=== PATIENT | female | born 1975 | race Caucasian/White ===

== ENCOUNTER 2023-04-01 11:38 | Emergency (ER) | payer SELFPAY ==
[2023-04-01 12:13] LABS: Basophils % (A) 0 %; Eosinophils # (A) 0.1 k/uL (0-0.7); Eosinophils % (A) 2 %; HCT 40.9 % (34.0-46.0); Lymphocytes # (A) 1.1 k/uL (1.0-4.8); Lymphocytes % (A) 19 %; MCH 29.6 pg (25.0-35.0); MCHC 34.3 g/dL (31.0-37.0); MCV 86.3 fL (80.0-100.0); Mean Platelet Volume 7.2; Monocytes # (A) 0.5 k/uL (0-1.0); Monocytes % (A) 9 %; Neutrophils # (A) 3.8 k/uL (1.3-7.7); Neutrophils % (A) 67 %; Platelet Count 184 k/uL (150-450); RBC 4.74 m/uL (3.80-5.40); RDW 12.5 % (11.5-15.5); WBC 5.7 k/uL (3.8-10.6)
[2023-04-01] MEDS ORDERED: SODIUM CHLORIDE 0.9% 1,000 ML IV STA (12:15)
[2023-04-01 12:18] LABS: Appearance,Urine Cloudy (Clear); Bacteria,Urine Rare /hpf; Bilirubin,Urine Negative (Negative); Blood,Urine Moderate (Negative); Color,Urine Yellow; Glucose,Urine (UA) Negative (Negative); Ketones,Urine Negative (Negative); Leukocyte Esterase,Urine Large (Negative); Mucus,Urine Occasional /hpf; Nitrite,Urine Negative (Negative); PH, Urine 6.5 (5.0-8.0); Protein,Urine 2+ (Negative); RBC,Urine 44 /hpf (0-5); Specific Gravity,Urine 1.016 (1.001-1.035); Squamous Epithelial Cell,Urine 6 /hpf (0-4); Urobilinogen,Urine <2.0 mg/dL (<2.0); WBC,Urine >182 /hpf (0-5)
[2023-04-01] MEDS ORDERED: KETOROLAC 15 MG/ML 1 ML VIAL IVP STA (12:21)
[2023-04-01 12:22] LABS: Albumin 4.5 g/dL (3.5-5.0); Calcium 9.5 mg/dL (8.4-10.2); Potassium 4.3 mmol/L (3.5-5.1); Total Bilirubin 0.6 mg/dL (0.2-1.3); Total Protein 7.7 g/dL (6.3-8.2)
--- NOTE | 2023-04-01 12:27 | ED ---
General Adult HPI - General Chief complaint: Abdominal Pain Stated complaint: Left side pain Time Seen by Provider: 04/01/23 11:52 Source: patient Mode of arrival: ambulatory Limitations: no limitations - History of Present Illness Initial comments: Dictation was produced using [employer] dictation software. please excuse any grammatical, word or spelling errors. Chief Complaint: 47-year-old female presents emergency part for left-sided flank pain History of Present Illness: Is 47-year-old female presents emergency Prilosec flank pain. She is history of kidney stones. She's had multiple kidney stones however has not required any surgical intervention. Family yesterday she's been having left flank pain. She localizes the pain to her left lower back. Nonradiating. Not associated with urinary symptoms. Patient has passed mu ltiple stones before. She states that she had a number of small stones. She is last image 2 years ago. Patient states the pain is slightly different. Symptoms are associated with nausea. No vomiting. Denies any fever or constitutional symptoms. The ROS documented in this emergency department record has been reviewed and confirmed by me. Those systems with pertinent positive or negative responses have been documented in the HPI. All other systems are other negative and/or noncontributory. - Related Data Home Medications Medication Instructions Recorded Confirmed Acetaminophen Tab [Tylenol Tab] 1,000 mg PO Q6H PRN 04/01/23 04/01/23 Amitriptyline HCl [Elavil] 25 mg PO HS 04/01/23 04/01/23 Cholecalciferol [Vitamin D3 (125 125 mcg PO DAILY 04/01/23 04/01/23 Mcg = 5000 Iu)] Cyclobenzaprine [Flexeril] 10 mg PO TID PRN 04/01/23 04/01/23 Docusate [Colace] 100 mg PO BID 04/01/23 04/01/23 Gabapentin 300 mg PO BID 04/01/23 04/01/23 Levothyroxine Sodium [Synthroid] 75 mcg PO AC-BRKFST 04/01/23 04/01/23 Meloxicam [Mobic] 7.5 mg PO DAILY 04/01/23 04/01/23 Meloxicam [Mobic] 7.5 mg PO HS PRN 04/01/23 04/01/23 polyethylene glycoL 3350 [Miralax] 17 gm PO BID 04/01/23 04/01/23 Previous Rx's Medication Instructions Recorded Cefpodoxime Proxetil [Vantin] 200 mg PO Q12HR 10 Days #20 tab 04/01/23 Allergies Allergy/AdvReac Type Severity Reaction Status Date / Time sulfamethoxazole Allergy Anaphylaxis Verified 04/01/23 13:01 [From Bactrim] trimethoprim [From Bactrim] Allergy Anaphylaxis Verified 04/01/23 13:01 Review of Systems ROS Statement: Those systems with pertinent positive or pertinent negative responses have been documented in the HPI. ROS Other: All systems not noted in ROS Statement are negative. Past Medical History Past Medical History: Fibromyalgia, Thyroid Disorder Additional Past Medical History / Comment(s): kidney stones History of Any Multi-Drug Resistant Organisms: None Reported Past Surgical History: Section, Cholecystectomy, Hysterectomy Additional Past Surgical History / Comment(s): right ureter replacement Past Psychological History: No Psychological Hx Reported Smoking Status: Never smoker Past Alcohol Use History: None Reported Past Drug Use History: None Reported General Exam - General Exam Comments Initial Comments: PHYSICAL EXAM: General Impression: Alert and oriented x3, mild distress secondary to pain HEENT: Normocephalic atraumatic, extra-ocular movements intact, pupils equal and reactive to light bilaterally, mucous membranes moist. Cardiovascular: Heart regular rate and rhythm Chest: Able to complete full sentences, no retractions, no tachypnea Abdomen: abdomen soft, non-tender, non-distended, no organomegaly Musculoskeletal: Pulses present and equal in all extremities, no peripheral edema, positive left CVA thump Motor: no focal deficits noted Neurological: CN II-XII grossly intact, no focal motor or sensory deficits noted Skin: Intact with no visualized rashes Psych: Normal affect and mood Limitations: no limitations Course Vital Signs 04/01/23 04/01/23 11:42 13:17 Temperature 98 F 98.6 F Pulse Rate 97 78 Respiratory 16 14 Rate Blood Pressure 150/92 143/90 O2 Sat by Pulse 98 97 Oximetry - Reevaluation(s) Reevaluation #1: 04/01/23 13:59 Patient reevaluated bedside 2:00 PM found with stable medical condition. Symptoms improved after Toradol administration. Imaging studies and lab results were discussed with patient. She is told of bilateral hydronephrosis. She states that this is likely secondary to previous history of kidney stone issues that caused chronic damage to her kidneys. She does not have any right-sided pain. States that the pain is on the left side. Given a dose of ceftriaxone 04/01/23 14:00 Medical Decision Making - Medical Decision Making Was pt. sent in by a medical professional or institution ([facility], [employer], urgent care, hospital, or jail...) When possible be specific @ -No Did you speak to anyone other than the patient for history (EMS, parent, family, police, friend...)? What history was obtained from this source @ -No Did you review nursing and triage notes (agree or disagree)? Why? @ -I reviewed and agree with nursing and triage notes Were old charts reviewed (outside hosp., previous admission, EMS record, old EKG, old radiological studies, urgent care reports/EKG's, jail records)? Report findings @ -no Old charts available for review Differential Diagnosis (chest pain, altered mental status, abdominal pain women, abdominal pain men, vaginal bleeding, musculoskeletal, weakness, fever, dyspnea, syncope, headache, dizziness, GI bleed, back pain, seizure, CVA, palpatations, mental health)? @ -Differential Abdominal Pain Women: Appendicitis, Cholecystitis, diverticulosis, ischemic bowel, pancreatitis, hepatitis, UTI, gastroenteritis, AAA, incarcerated hernia, bowel obstruction, constipation, inflammatory bowel, hepatitis, peptic ulcer disease, splenic infarction, perforated viscus, vulvitis, ovarian torsion, PID, kidney stone, placenta abruption, this is not meant to be an all-inclusive list EKG interpreted by me (3pts min.). @ -None done X-rays interpreted by me (1pt min.). @ -None done CT interpreted by me (1pt min.). @ -No acute processes. There does appear to be some mild hydronephrosis and hydroureter bilaterally U/S interpreted by me (1pt. min.). @ -None done What testing was considered but not performed or refused? (CT, X-rays, U/S, labs)? Why? @ -None What meds were considered but not given or refused? Why? @ -None Did you discuss the management of the patient with other professionals (professionals i.e. [facility], [employer], lab, RT, psych nurse, social insurance specialist, fiberglass tube molder, teacher, facility security officer, case fitter)? Give summary @ -No Was smoking cessation discussed for >3mins.? @ -No Was critical care preformed (if so, how long)? @ -No Were there social determinants of health that impacted care today? How? (Homelessness, low income, unemployed, alcoholism, drug addiction, transportation, low edu. Level, literacy, decrease access to med. care, half-way, rehab)? @ -Patient primary state of residence [place]. She is here for the next 2 months visiting daughter. All of her care regarding previous kidney stones was performed in [place] Was there de-escalation of care discussed even if they declined (Discuss DNR or withdrawal of care, Hospice)? DNR status @ -No What co-morbidities impacted this encounter? (DM, HTN, Smoking, COPD, CAD, Cancer, CVA, ARF, Chemo, Hep., AIDS, mental health diagnosis, sleep apnea, morbid obesity)? @ -None Was patient admitted / discharged? Hospital course, mention meds given and rout e, prescriptions, significant lab abnormalities, going to OR and other pertinent info. @ -47-year-old female presents emergency Department with left-sided flank pain. She has history of kidney stones. States that her symptoms slightly different. She localizes pain to only her left flank. Vital signs upon arrival are within acceptable limits for denies any constitutional symptoms. Laboratory evaluation obtained. CBC, metabolic panel is unremarkable. Urinalysis suggests urinary tract infection. Patient does not have any history of multidrug resistant urinary tract infections. She is given a dose of ceftriaxone. Imaging and laboratory results were discussed with patient. She is agreeable for discharge. Return precautions discussed. Clinical presentation consistent with pyelonephritis Undiagnosed new problem with uncertain prognosis? @ -No Drug Therapy requiring intensive monitoring for toxicity (Heparin, Nitro, Insulin, Cardizem)? @ -No Were any procedures done? @ -No Diagnosis/symptom? Acute, or Chronic, or Acute on Chronic? Uncomplicated (without systemic symptoms) or Complicated (systemic symptoms)? @ -1. Acute pyelonephritis Side effects of treatment? @ -No Exacerbation, Progression, or Severe Exacerbation? @ -No Poses a threat to life or bodily function? How? (Chest pain, [place], [place], pneumonia, PE, COPD, DKA, ARF, appy, cholecystitis, CVA, Diverticulitis, Homicidal, Suicidal, threat to staff... and all critical care pts) @ -yes - Lab Data Result diagrams: 04/01/23 11:57 04/01/23 11:57 Lab Results 04/01/23 04/01/23 04/01/23 Range/Units 11:57 11:57 11:57 WBC 5.7 (3.8-10.6) k/uL RBC 4.74 (3.80-5.40) m/uL Hgb 14.0 (11.4-16.0) gm/dL Hct 40.9 (34.0-46.0) % MCV 86.3 (80.0-100.0) fL MCH 29.6 (25.0-35.0) pg MCHC 34.3 (31.0-37.0) g/dL RDW 12.5 (11.5-15.5) % Plt Count 184 (150-450) k/uL MPV 7.2 Neutrophils % 67 % Lymphocytes % 19 % Monocytes % 9 % Eosinophils % 2 % Basophils % 0 % Neutrophils # 3.8 (1.3-7.7) k/uL Lymphocytes # 1.1 (1.0-4.8) k/uL Monocytes # 0.5 (0-1.0) k/uL Eosinophils # 0.1 (0-0.7) k/uL Basophils # 0.0 (0-0.2) k/uL Sodium 140 (137-145) mmol/L Potassium 4.3 (3.5-5.1) mmol/L Chloride 100 (98-107) mmol/L Carbon Dioxide 28 (22-30) mmol/L Anion Gap 12 mmol/L BUN 15 (7-17) mg/dL Creatinine 1.34 H (0.52-1.04) mg/dL Est GFR (CKD-EPI)AfAm 55 (>60 ml/min/1.73 sqM) Est GFR (CKD-EPI)NonAf 47 (>60 ml/min/1.73 sqM) Glucose 127 H (74-99) mg/dL Calcium 9.5 (8.4-10.2) mg/dL Total Bilirubin 0.6 (0.2-1.3) mg/dL AST 32 (14-36) U/L ALT 41 H (4-34) U/L Alkaline Phosphatase 65 (38-126) U/L Total Protein 7.7 (6.3-8.2) g/dL Albumin 4.5 (3.5-5.0) g/dL Lipase 58 (23-300) U/L Urine Color Yellow Urine Appearance Cloudy H (Clear) Urine pH 6.5 (5.0-8.0) Ur Specific [place] 1.016 (1.001-1.035) Urine Protein 2+ H (Negative) Urine Glucose (UA) Negative (Negative) Urine Ketones Negative (Negative) Urine Blood Moderate H (Negative) Urine Nitrite Negative (Negative) Urine Bilirubin Negative (Negative) Urine Urobilinogen <2.0 (<2.0) mg/dL Ur Leukocyte Esterase Large H (Negative) Urine RBC 44 H (0-5) /hpf Urine WBC >182 H (0-5) /hpf Urine WBC Clumps Few H (None) /hpf Ur Squamous Epith Cells 6 H (0-4) /hpf Urine Bacteria Rare H (None) /hpf Urine Mucus Occasional H (None) /hpf Disposition Clinical Impression: Pyelonephritis Disposition: HOME SELF-CARE Condition: Good Prescriptions: Cefpodoxime Proxetil [Vantin] 200 mg PO Q12HR 10 Days #20 tab Is patient prescribed a controlled substance at d/c from ED?: No Referrals: Jose Carlos Etienne MD [STAFF PHYSICIAN] - 1-2 days Time of Disposition: 14:03
[2023-04-01] MEDS ORDERED: cefTRIAXone IN SWFI 1,000 MG/10 ML SYRINGE IVP STA (12:41)
[2023-04-01 13:22] VITALS: RESP 14; TEMP 98.6
--- NOTE | 2023-04-01 13:42 | CT ---
EXAMINATION TYPE: CT abdomen pelvis wo con DATE OF EXAM: 04/01/2023 COMPARISON: None INDICATION: Left flank pain, history of renal stones, history of interstitial cystitis DLP: 1145.4 mGycm, Automated exposure control for dose reduction was used. CONTRAST: 0 mL of Isovue 300. Study performed without Oral Contrast TECHNIQUE: Axial images were obtained from above the diaphragm to the pubic rami in the axial plane a t 5 mm thick sections. Reconstructed images are reviewed on the computer in the coronal plane. FINDINGS: Limited CT sections are obtained the lung bases. The lung bases are clear. CT ABDOMEN: Liver: There is moderate fatty infiltration liver. Spleen: Normal Pancreas: Normal Adrenal glands: The adrenal glands are normal. Gallbladder: Surgically absent. Kidneys: No masses are evident. Mild bilateral hydronephrosis present. Mild hydroureter is evident. N o obstructing renal or ureteral stones are evident. There appear to be phleboliths within the pelvis. There are some nonobstructing renal stones at the inferior pole right kidney measuring 0.3 cm. Aorta: Vascular calcification is within the aorta. Inferior vena cava: Normal. CT PELVIS: Loops of bowel within the abdomen and pelvis are normal. This study is performed without oral con trast limiting bowel evaluation. Appendix: Normal as visualized. Urinary bladder: Normal. Genitourinary structures: Uterus and ovaries are not identified. Osseous structures: No suspicious lytic or sclerotic lesions. IMPRESSIONS: 1. Nonobstructing renal stones inferior pole right kidney. 2. There is some mild bilateral hydronephrosis and mild hydroureter extending to the urinary bladder. Obstructing ureteral stones however not identified.
[2023-04-01] MEDS ORDERED: ACET/COD 300 MG/30 MG STARTER PACK 6 TAB BTL PO STA (14:03)
[2023-04-01 14:05] VITALS: BP 133/85; PULSE 74
== END 2023-04-01 14:17 | disposition home or self-care (01) ==
LOC: EC 11:38
DX: N13.6 Pyonephrosis (principal); N30.10 Interstitial cystitis (chronic) without hematuria; N12 Tubulo-interstitial nephritis, not specified as acute or chronic; E07.9 Disorder of thyroid, unspecified; Z79.890 Hormone replacement therapy; Z88.1 Allergy status to other antibiotic agents; Z88.2 Allergy status to sulfonamides; Z90.49 Acquired absence of other specified parts of digestive tract; Z79.1 Long term (current) use of non-steroidal anti-inflammatories (NSAID)
CPT/HCPCS: 36415; 80053; 83690; 85025; 81001; 87040; 74176; 99284; 96374; 96375; 96361 ×2; J0696; J1885

== ENCOUNTER 2023-04-03 10:13 | Inpatient (IN) | payer BC ==
[2023-04-03 11:03] LABS: Albumin 4.2 g/dL (3.5-5.0); Calcium 9.1 mg/dL (8.4-10.2); Potassium 3.9 mmol/L (3.5-5.1); Total Bilirubin 0.7 mg/dL (0.2-1.3); Total Protein 7.4 g/dL (6.3-8.2)
--- NOTE | 2023-04-03 11:03 | XR ---
EXAMINATION TYPE: XR KUB DATE OF EXAM: 04/03/2023 COMPARISON: NONE HISTORY: Abdominal pain TECHNIQUE: One view abdominal series FINDINGS: The osseous structures are intact. The bowel gas pattern is nonspecific. Surgical clips right upper quadrant. There are 2 small punctate calcifications in the pelvis. Scoliotic curvature spine. IMPRESSION: 1. Nonspecific abdomen. A punctate right hemipelvic calcifications within the vascular. Lower pole r enal calculi noted by recent CT scan not as well seen today standard x-ray. Tiny calculus in the righ t hemipelvis appear to be outside the course of the right ureter based on previous CAT scan.
[2023-04-03 11:30] LABS: Basophils % (A) 0 %; Eosinophils # (A) 0.1 k/uL (0-0.7); Eosinophils % (A) 2 %; HGB 13.1 gm/dL (11.4-16.0); Lymphocytes # (A) 1.6 k/uL (1.0-4.8); Lymphocytes % (A) 23 %; MCH 28.4 pg (25.0-35.0); MCHC 33.5 g/dL (31.0-37.0); MCV 84.7 fL (80.0-100.0); Mean Platelet Volume 7.3; Monocytes # (A) 0.6 k/uL (0-1.0); Monocytes % (A) 8 %; Neutrophils # (A) 4.5 k/uL (1.3-7.7); Neutrophils % (A) 64 %; Platelet Count 187 k/uL (150-450); RBC 4.61 m/uL (3.80-5.40); RDW 12.8 % (11.5-15.5)
[2023-04-03 11:34] LABS: Appearance,Urine Turbid (Clear); Bacteria,Urine Rare /hpf; Bilirubin,Urine Negative (Negative); Blood,Urine Large (Negative); Color,Urine Yellow; Glucose,Urine (UA) Negative (Negative); Ketones,Urine Negative (Negative); Leukocyte Esterase,Urine Large (Negative); Mucus,Urine Occasional /hpf; Nitrite,Urine Negative (Negative); Protein,Urine 2+ (Negative); RBC,Urine 99 /hpf (0-5); Specific Gravity,Urine 1.021 (1.001-1.035); Squamous Epithelial Cell,Urine 20 /hpf (0-4); Urobilinogen,Urine <2.0 mg/dL (<2.0); WBC,Urine >182 /hpf (0-5)
[2023-04-03] MEDS ORDERED: MORPHINE SULFATE 4 MG/ML SYRINGE IVP STA (11:37)
[2023-04-03] MEDS ORDERED: SODIUM CHLORIDE 0.9% 1,000 ML IV STA (11:37)
[2023-04-03] MEDS ORDERED: KETOROLAC 15 MG/ML 1 ML VIAL IVP STA (11:37)
--- NOTE | 2023-04-03 11:38 | ED ---
General Adult HPI - General Chief complaint: Abdominal Pain Stated complaint: Left flank pain - extending into ABD Time Seen by Provider: 04/03/23 11:29 Source: patient, RN notes reviewed Mode of arrival: ambulatory Limitations: no limitations - History of Present Illness Initial comments: Patient is a 47-year-old female presenting to the emergency room with complaints of worsening left flank pain which is now radiating into her abdomen with occasional nausea and vomiting. She presented to the emergency room on 04/03/2023 with similar symptoms. Workup found her to have mild hydronephrosis bilaterally and a right nonobstructive renal stone along with a urinary tract infection. She was placed on antibiotic therapy and given a one-time dose of IV antibiotics the hospital. She has been taking her antibiotics of Vantin as prescribed and as stated above symptoms are not improving. She continues to have dysuria and urinary frequency but denies hematuria. She denies any chest pain, shortness of breath, upper abdominal pain, diarrhea, headache, dizziness, fevers or chills. In addition to her kidney stone history she has a past medical history significant for septicemia secondary to pyelonephritis, fibromyalgia and hypothyroidism. - Related Data Home Medications Medication Instructions Recorded Confirmed Acetaminophen Tab [Tylenol Tab] 1,000 mg PO Q6H PRN 04/01/23 04/03/23 Amitriptyline HCl [Elavil] 25 mg PO HS 04/01/23 04/03/23 Cholecalciferol [Vitamin D3 (125 125 mcg PO DAILY 04/01/23 04/03/23 Mcg = 5000 Iu)] Cyclobenzaprine [Flexeril] 10 mg PO TID PRN 04/01/23 04/03/23 Docusate [Colace] 100 mg PO BID 04/01/23 04/03/23 Gabapentin 300 mg PO BID 04/01/23 04/03/23 Levothyroxine Sodium [Synthroid] 75 mcg PO AC-BRKFST 04/01/23 04/03/23 Meloxicam [Mobic] 7.5 mg PO DAILY 04/01/23 04/03/23 Meloxicam [Mobic] 7.5 mg PO HS PRN 04/01/23 04/03/23 polyethylene glycoL 3350 [Miralax] 17 gm PO BID 04/01/23 04/03/23 Previous Rx's Medication Instructions Recorded Cefpodoxime Proxetil [Vantin] 200 mg PO Q12HR 10 Days #20 tab 04/01/23 Allergies Allergy/AdvReac Type Severity Reaction Status Date / Time sulfamethoxazole Allergy Anaphylaxis Verified 04/03/23 14:34 [From Bactrim] trimethoprim [From Bactrim] Allergy Anaphylaxis Verified 04/03/23 14:34 Review of Systems ROS Statement: Those systems with pertinent positive or pertinent negative responses have been documented in the HPI. ROS Other: All systems not noted in ROS Statement are negative. Past Medical History Past Medical History: Fibromyalgia, Thyroid Disorder Additional Past Medical History / Comment(s): kidney stones History of Any Multi-Drug Resistant Organisms: None Reported Past Surgical History: Section, Cholecystectomy, Hysterectomy Additional Past Surgical History / Comment(s): right ureter replacement Past Psychological History: No Psychological Hx Reported Smoking Status: Never smoker Past Alcohol Use History: None Reported Past Drug Use History: None Reported General Exam - General Exam Comments Initial Comments: GENERAL: No acute distress, well developed, well nourished. HEENT: Normocephalic, atraumatic. Pupils equal, round, reactive to light. Moist mucous membranes. LUNGS: No respiratory distress. Clear to auscultation, no adventitious sounds, no use of accessory muscles. HEART: Regular rate and rhythm without murmur, rub, or gallop. ABDOMEN: Normal bowel sounds. Soft, non-tender non-distended. Rounded abdomen. BACK: Normal inspection. Left CVA tenderness. EXTREMITIES: No edema. No tenderness. Moves all extremities. NEUROLOGIC: Alert & oriented x 3. CN II-XII grossly intact. PSYCHIATRIC: Normal affect and behavior. DERMATOLOGIC: Skin intact, without rashes or lesions noted. Limitations: no limitations Course Vital Signs 04/03/23 10:17 Temperature 98.2 F Pulse Rate 82 Respiratory 18 Rate Blood Pressure 163/100 O2 Sat by Pulse 97 Oximetry Medical Decision Making - Medical Decision Making Was pt. sent in by a medical professional or institution (, PA, PATTERN WEAVER, urgent care, hospital, or shelter...) When possible be specific @ -No Did you speak to anyone other than the patient for history (EMS, parent, family, police, friend...)? What history was obtained from this source @ -No Did you review nursing and triage notes (agree or disagree)? Why? @ -I reviewed and agree with nursing and triage notes Were old charts reviewed (outside hosp., previous admission, EMS record, old EKG, old radiological studies, urgent care reports/EKG's, shelter records)? Report findings @ -Yes, laboratory studies and CT of the abdomen completed on 04/01/2023 reviewed. Differential Diagnosis (chest pain, altered mental status, abdominal pain women, abdominal pain men, vaginal bleeding, weakness, fever, dyspnea, syncope, headache, dizziness, GI bleed, back pain, seizure, CVA, palpatations, mental health, musculoskeletal)? @ -Differential Back Pain: Strain, zoster, cauda equina syndrome, epidural abscess, vertebral osteomyelitis, discitis, fracture, subluxation, disc herniation, DJD, spinal stenosis, dissection, AAA, pancreatitis, peptic ulcer disease, pyelonephritis, kidney stone, this is not meant to be an all-inclusive list. EKG interpreted by me (3pts min.). @ -None done X-rays interpreted by me (1pt min.). @ -KUB: Redemonstration of renal stone identified on computed tomography scan previously. No free air or obstruction. CT interpreted by me (1pt min.). @ -None done U/S (1pt. min.). @ -Ultrasound kidneys/renal and bladder report per radiologist not interpreted by me shows mild to moderate left hydronephrosis and hepatic steatosis. What testing was considered but not performed or refused? (CT, X-rays, U/S, labs)? Why? @ -Computed tomography scan deferred due to recent CAT scan. What meds were considered but not given or refused? Why? @ -None Did you discuss the management of the patient with other professionals (professionals i.e. , PA, PATTERN WEAVER, lab, RT, psych nurse, secondary social studies teacher, financial analysis advisor, teacher, custody officer, high risk case manager)? Give summary @ -Yes, spoke with Dr. Damian regarding patient's presentation and recommendation of admission for further evaluation and treatment. He is accepting of admission and denies any further order needs at this time. Was smoking cessation discussed for >3mins.? @ -No Was critical care preformed (if so, how long)? @ -No Were there social determinants of health that impacted care today? How? (Homelessness, low income, unemployed, alcoholism, drug addiction, transportation, low edu. Level, literacy, decrease access to med. care, nursing home, rehab)? @ -No Was there de-escalation of care discussed even if they declined (Discuss DNR or withdrawal of care, Hospice)? DNR status @ -No What co-morbidities impacted this encounter? (DM, HTN, Smoking, COPD, CAD, Cancer, CVA, ARF, Chemo, Hep., AIDS, mental health diagnosis, sleep apnea, morbid obesity)? @ -Kidney stone history and recently diagnosed UTI Was patient admitted / discharged? Hospital course, mention meds given and route, prescriptions, significant lab abnormalities, going to OR and other pertinent info. @ -47-year-old . Presenting to the emergency room with worsening left flank pain despite adhering to treatment for urinary tract infection. Workup completed on 04/01/2023 reviewed. Will defer computed tomography scan and obtain ultrasound of the kidneys and bladder. KUB ordered by triaging nurse reviewed and nonspecific. Laboratory studies ordered by triaging nurse of CBC, CMP, urinalysis and urine hCG all available. CBC without abnormalities CMP shows increasing creatinine at 1.46 with normal BUN electrolytes normal glucose elev ated 118 a LT elevated 44 AST and alkaline phosphatase normal. Urinalysis demonstrates blood, large leukocyte esterase urine RBC 99 urine WBC greater than 182 significant amount of squamous epithelial cells, rare bacteria and occasional mucus. Urine hCG Qual negative. Will give IV hydration and Toradol for pain along with morphine. Ultrasound of kidneys bladder demonstrates mild to moderate hydronephrosis to left kidney, none to right. The setting of worsening pain requiring multiple doses of pain medication for control and progressing hydronephrosis with increase in creatinine from 1.34-1.48 despite oral antibiotic treatment recommend admission for IV antibiotics, IV hydration and pain control. Recommendations discussed with patient and was agreeable to admission. Spoke with Dr. Damian on for [facility] regarding patient's workup and recommendations of admission for IV pain control, hydration and antibiotics. He is accepting of admission and denies any further orders at this time. Will admit patient in stable condition to medical surgical unit under [facility] services for further evaluation and treatment for urinary tract infection with left hydronephrosis. Undiagnosed new problem with uncertain prognosis? @ -No Drug Therapy requiring intensive monitoring for toxicity (Heparin, Nitro, Insulin, Cardizem)? @ -No Were any procedures done? @ -No Diagnosis/symptom? @ -UTI Acute, or Chronic, or Acute on Chronic? @ -Acute Uncomplicated (without systemic symptoms) or Complicated (systemic symptoms)? @ -Complicated Side effects of treatment? @ -No Exacerbation, Progression, or Severe Exacerbation? @ -No Poses a threat to life or bodily function? How? (Chest pain, USA, PR, pneumonia, PE, COPD, DKA, ARF, appy, cholecystitis, CVA, Diverticulitis, Homicidal, Suicidal, threat to staff... and all critical care pts) @ -Yes, pain and hydronephrosis to left kidney worsening on antibiotics at risk for pyelonephrosis and sepsis. Diagnosis/symptom? @ -Flank pain Acute, or Chronic, or Acute on Chronic? @ -Acute Uncomplicated (without systemic symptoms) or Complicated (systemic symptoms)? @ -Uncomplicated Side effects of treatment? @ -none Exacerbation, Progression, or Severe Exacerbation] @ -no Poses a threat to life or bodily function? @ -no Diagnosis/symptom? @ -Left hydronephrosis Acute, or Chronic, or Acute on Chronic? @ -Acute Uncomplicated (without systemic symptoms) or Complicated (systemic symptoms)? @ -Complicated Side effects of treatment? @ -none Exacerbation, Progression, or Severe Exacerbation] @ -no Poses a threat to life or bodily function? @ -Yes, severe pain with worsening renal function at risk for worsening renal function. Case discussed with Dr. Feliz. - Lab Data Result diagrams: 04/03/23 10:35 04/03/23 10:35 Lab Results 04/03/23 04/03/23 04/03/23 Range/Units 10:35 10:35 10:35 WBC 7.0 (3.8-10.6) k/uL RBC 4.61 (3.80-5.40) m/uL Hgb 13.1 (11.4-16.0) gm/dL Hct 39.0 (34.0-46.0) % MCV 84.7 (80.0-100.0) fL MCH 28.4 (25.0-35.0) pg MCHC 33.5 (31.0-37.0) g/dL RDW 12.8 (11.5-15.5) % Plt Count 187 (150-450) k/uL MPV 7.3 Neutrophils % 64 % Lymphocytes % 23 % Monocytes % 8 % Eosinophils % 2 % Basophils % 0 % Neutrophils # 4.5 (1.3-7.7) k/uL Lymphocytes # 1.6 (1.0-4.8) k/uL Monocytes # 0.6 (0-1.0) k/uL Eosinophils # 0.1 (0-0.7) k/uL Basophils # 0.0 (0-0.2) k/uL Sodium 140 (137-145) mmol/L Potassium 3.9 (3.5-5.1) mmol/L Chloride 103 (98-107) mmol/L Carbon Dioxide 28 (22-30) mmol/L Anion Gap 9 mmol/L BUN 13 (7-17) mg/dL Creatinine 1.48 H (0.52-1.04) mg/dL Est GFR (CKD-EPI)AfAm 48 (>60 ml/min/1.73 sqM) Est GFR (CKD-EPI)NonAf 42 (>60 ml/min/1.73 sqM) Glucose 118 H (74-99) mg/dL Calcium 9.1 (8.4-10.2) mg/dL Total Bilirubin 0.7 (0.2-1.3) mg/dL AST 33 (14-36) U/L ALT 44 H (4-34) U/L Alkaline Phosphatase 74 (38-126) U/L Total Protein 7.4 (6.3-8.2) g/dL Albumin 4.2 (3.5-5.0) g/dL Urine Color Yellow Urine Appearance Turbid H (Clear) Urine pH 6.0 (5.0-8.0) Ur Specific [place] 1.021 (1.001-1.035) Urine Protein 2+ H (Negative) Urine Glucose (UA) Negative (Negative) Urine Ketones Negative (Negative) Urine Blood Large H (Negative) Urine Nitrite Negative (Negative) Urine Bilirubin Negative (Negative) Urine Urobilinogen <2.0 (<2.0) mg/dL Ur Leukocyte Esterase Large H (Negative) Urine RBC 99 H (0-5) /hpf Urine WBC >182 H (0-5) /hpf Ur Squamous Epith Cells 20 H (0-4) /hpf Urine Bacteria Rare H (None) /hpf Urine Mucus Occasional H (None) /hpf Urine HCG, Qual (Not Detectd) 04/03/23 Range/Units 10:35 WBC (3.8-10.6) k/uL RBC (3.80-5.40) m/uL Hgb (11.4-16.0) gm/dL Hct (34.0-46.0) % MCV (80.0-100.0) fL MCH (25.0-35.0) pg MCHC (31.0-37.0) g/dL RDW (11.5-15.5) % Plt Count (150-450) k/uL MPV Neutrophils % % Lymphocytes % % Monocytes % % Eosinophils % % Basophils % % Neutrophils # (1.3-7.7) k/uL Lymphocytes # (1.0-4.8) k/uL Monocytes # (0-1.0) k/uL Eosinophils # (0-0.7) k/uL Basophils # (0-0.2) k/uL Sodium (137-145) mmol/L Potassium (3.5-5.1) mmol/L Chloride (98-107) mmol/L Carbon Dioxide (22-30) mmol/L Anion Gap mmol/L BUN (7-17) mg/dL Creatinine (0.52-1.04) mg/dL Est GFR (CKD-EPI)AfAm (>60 ml/min/1.73 sqM) Est GFR (CKD-EPI)NonAf (>60 ml/min/1.73 sqM) Glucose (74-99) mg/dL Calcium (8.4-10.2) mg/dL Total Bilirubin (0.2-1.3) mg/dL AST (14-36) U/L ALT (4-34) U/L Alkaline Phosphatase (38-126) U/L Total Protein (6.3-8.2) g/dL Albumin (3.5-5.0) g/dL Urine Color Urine Appearance (Clear) Urine pH (5.0-8.0) Ur Specific [place] (1.001-1.035) Urine Protein (Negative) Urine Glucose (UA) (Negative) Urine Ketones (Negative) Urine Blood (Negative) Urine Nitrite (Negative) Urine Bilirubin (Negative) Urine Urobilinogen (<2.0) mg/dL Ur Leukocyte Esterase (Negative) Urine RBC (0-5) /hpf Urine WBC (0-5) /hpf Ur Squamous Epith Cells (0-4) /hpf Urine Bacteria (None) /hpf Urine Mucus (None) /hpf Urine HCG, Qual Not Detected (Not Detectd) - Radiology Data Radiology results: report reviewed, image reviewed Disposition Clinical Impression: UTI (urinary tract infection), Hydronephrosis Disposition: ADMITTED IP TO THIS HOSP Condition: Stable Time of Disposition: 14:12
--- NOTE | 2023-04-03 13:34 | US ---
EXAMINATION TYPE: US kidneys/renal and bladder DATE OF EXAM: 04/03/2023 COMPARISON: CLINICAL INDICATION: Female, 47 years old with history of UTI flank pain; Left side pain. Patient st ates having hx of right renal stones with surgical intervention. EXAM MEASUREMENTS: Right Kidney: 11.6 x 4.6 x 4.1 cm Left Kidney: 13.7 x 5.5 x 6.4 cm Right Kidney: Small extrarenal pelvis. No calyceal dilatation to suggest hydronephrosis. Left Kidney: Mild to moderate hydronephrosis. Bladder: Incompletely distention limited evaluation. Bilateral Jets not seen Incidental echogenic hepatic parenchyma suggesting fatty infiltration. IMPRESSION: 1. Ongoing mild to moderate left hydronephrosis. Appropriate workup and management as to etiology. 2. Incidental hepatic steatosis.
[2023-04-03] MEDS ORDERED: NALOXONE 0.4 MG/ML 1 ML VIAL IV PRN (14:12)
[2023-04-03] MEDS ORDERED: ONDANSETRON 4 MG/2 ML VIAL IVP PRN (14:12)
[2023-04-03] MEDS ORDERED: IBUPROFEN 400 MG TAB PO PRN (14:12)
[2023-04-03] MEDS ORDERED: MORPHINE SULFATE 4 MG/ML SYRINGE IV PRN (14:12)
[2023-04-03] MEDS ORDERED: cefTRIAXone IN SWFI 1,000 MG/10 ML SYRINGE IVP STA (14:13)
[2023-04-03] MEDS: KETOROLAC 15 MG/ML 1 ML VIAL IVP PRN (16:22)
[2023-04-03] MEDS: SODIUM CHLORIDE 0.9% 1,000 ML IV SCH (17:55)
--- NOTE | 2023-04-04 00:57 | P.HPIM ---
History of Present Illness H&P Date: 04/03/23 Chief Complaint: Left flank pain Patient is a 47-year-old female with known history of fibromyalgia, hypothyroidism and prior history of right /renal stones presents to ER with complaints of worsening left flank pain radiating across to the abdomen. Patient was also having episodes of nausea and vomiting. Patient was seen in the ER on 04/03/2023 with similar symptoms and work-up including CT of the abdomen pelvis showed nonobstructing renal stones right kidney and there is some mild bilateral hydronephrosis and mild hydroureter extending to the urinary bladder. Obstructing ureteral stones however not identified. Patient was sent home with antibiotics, Vantin. Patient presented back to ER due to worsening flank pain and she woke up with pain this morning. Patient states that she continues to have dysuria and urinary frequency. Denies any blood in the urine. No complaints of chest pain or shortness of breath. No headache or dizziness or lightheadedness. Ultrasound abdomen/bladder showed ongoing mild to moderate left hydronephrosis. Incidental hepatic steatosis. KUB x-ray showed nonspecific abdominal. Punctate right hemipelvic calcifications within the vascular lower pole renal calculi noted by recent CT scan not as well seen today. Patient was afebrile on admission. Laboratory data showed WBC 7.0 hemoglobin 13 point platelets 187 BUN 13 and creatinine 1.48 Urinalysis showed turbid with 2+ glucose large blood large leukocyte esterase with elevated RBCs and WBCs. Review of Systems Constitutional: Patient denies any fever or chills . no Generalized weakness. Abdomen: Patient denied any nausea or vomiting or abd. pain Cardiovascular: Patient denies any chest pain or short of breath no palpitations. Respiratory: patient denied any cough . no sputum production. No shortness of breath Neurologic: Patient denied any numbness or tingling headache. Musculoskeletal: Patient denies any complaints of joint swelling or deformity. Skin: Negative Psychiatric: Negative Endocrine: No heat or cold intolerance. No recent weight gain. Genitourinary: Complaints of dysuria and increasing frequency. No hematuria. Left flank pain. All other 14 point ROS negative except the above Past Medical History Past Medical History: Fibromyalgia, Thyroid Disorder Additional Past Medical History / Comment(s): kidney stones History of Any Multi-Drug Resistant Organisms: None Reported Past Surgical History: Section, Cholecystectomy, Hysterectomy Additional Past Surgical History / Comment(s): right ureter replacement Past Psychological History: No Psychological Hx Reported Smoking Status: Never smoker Past Alcohol Use History: None Reported Past Drug Use History: None Reported Medications and Allergies Home Medications Medication Instructions Recorded Confirmed Type Acetaminophen Tab [Tylenol Tab] 1,000 mg PO Q6H PRN 04/01/23 04/03/23 History Amitriptyline HCl [Elavil] 25 mg PO HS 04/01/23 04/03/23 History Cefpodoxime Proxetil [Vantin] 200 mg PO Q12HR 10 Days #20 tab 04/01/23 04/03/23 Rx Cholecalciferol [Vitamin D3 (125 125 mcg PO DAILY 04/01/23 04/03/23 History Mcg = 5000 Iu)] Cyclobenzaprine [Flexeril] 10 mg PO TID PRN 04/01/23 04/03/23 History Docusate [Colace] 100 mg PO BID 04/01/23 04/03/23 History Gabapentin 300 mg PO BID 04/01/23 04/03/23 History Levothyroxine Sodium [Synthroid] 75 mcg PO AC-BRKFST 04/01/23 04/03/23 History Meloxicam [Mobic] 7.5 mg PO DAILY 04/01/23 04/03/23 History Meloxicam [Mobic] 7.5 mg PO HS PRN 04/01/23 04/03/23 History polyethylene glycoL 3350 [Miralax] 17 gm PO BID 04/01/23 04/03/23 History Allergies Allergy/AdvReac Type Severity Reaction Status Date / Time sulfamethoxazole Allergy Anaphylaxis Verified 04/03/23 16:51 [From Bactrim] trimethoprim [From Bactrim] Allergy Anaphylaxis Verified 04/03/23 16:51 Physical Exam Vitals: Vital Signs Temp Pulse Pulse Pulse Resp BP BP 04/03/23 18:04 98.0 F 60 16 04/03/23 17:26 73 04/03/23 15:51 98.3 F 76 18 164/104 04/03/23 14:00 97.4 F L 74 18 155/90 04/03/23 10:17 98.2 F 82 18 163/100 BP Pulse Ox 04/03/23 18:04 143/82 96 04/03/23 17:26 137/88 04/03/23 15:51 99 04/03/23 14:00 177/114 99 04/03/23 10:17 97 Intake and Output 04/03/23 04/03/23 04/03/23 06:59 14:59 22:59 Intake Total 240 Balance 240 Intake: Oral 240 Other: Voiding Method Toilet # Voids 1 Weight 99.79 kg 99.79 kg PHYSICAL EXAMINATION: Patient is lying in the bed comfortably, no acute distress, awake alert and oriented.. HEENT: Normocephalic. Neck is supple. Pupils reactive. Nostrils clear. Oral cavity is moist. Neck reveals no JVD, carotid bruits, or thyromegaly. CHEST EXAMINATION: Trachea is central. Symmetrical expansion. Lung li clear to auscultation and percussion. CARDIAC: Normal S1, S2 with no gallops. No murmurs ABDOMEN: Soft. Bowel sounds present. Nontender. No organomegaly. No abdominal bruits. Left flank tenderness. Extremities: reveal no edema. No clubbing or cyanosis Neurologically awake, alert, oriented x3 with well-coordinated movements. No focal deficits noted Skin: No rash or skin lesions. Psychiatric: Coperative. Nonsuicidal, Musculoskeletal: No joint swelling or deformity. Normal range of motion. Results CBC & Chem 7: 04/03/23 10:35 04/03/23 10:35 Labs: Abnormal Lab Results - Last 24 Hours (Table) 04/03/23 04/03/23 Range/Units 10:35 10:35 Creatinine 1.48 H (0.52-1.04) mg/dL Glucose 118 H (74-99) mg/dL ALT 44 H (4-34) U/L Urine Appearance Turbid H (Clear) Urine Protein 2+ H (Negative) Urine Blood Large H (Negative) Ur Leukocyte Esterase Large H (Negative) Urine RBC 99 H (0-5) /hpf Urine WBC >182 H (0-5) /hpf Ur Squamous Epith Cells 20 H (0-4) /hpf Urine Bacteria Rare H (None) /hpf Urine Mucus Occasional H (None) /hpf Thrombosis Risk Factor Assmnt - DVT/VTE Prophylaxis DVT/VTE Prophylaxis: Pharmacologic Prophylaxis ordered - Choose All That Apply Each Factor Represents 1 point: Age 41-60 years, Obesity (BMI >25) Thrombosis Risk Factor Assessment Total Risk Factor Score: 2 Thrombosis Risk Factor Assessment Level: Low Risk Assessment and Plan Assessment: Acute pyelonephritis with left flank pain. Failed outpatient antibiotic therapy. Mild to moderate hydronephrosis left. Mild acute kidney injury Obesity with BMI 37.8 Fibromyalgia Hypothyroidism History of nephrostomy tube on the right side and removal. DVT prophylaxis with heparin subcu Plan: Patient will be continued on IV hydration with normal saline and antibiotics ceftriaxone 2 g daily. Follow-up urine culture report. Symptomatic management of the pain and continue with home medications. Follow- up closely and consider urology consultation. Time with Patient: Greater than 30
[2023-04-04] MEDS ORDERED: CYCLOBENZAPRINE 10 MG TAB PO PRN (01:02)
[2023-04-04] MEDS: LEVOTHYROXINE 75 MCG TAB PO SCH (05:52)
[2023-04-04] MEDS: SODIUM CHLORIDE 0.9% 1,000 ML IV SCH ×2 (05:52→18:40)
[2023-04-04] MEDS: KETOROLAC 15 MG/ML 1 ML VIAL IVP PRN ×3 (05:57→18:34)
[2023-04-04] MEDS: DOCUSATE 100 MG CAP PO SCH ×2 (09:02→20:08)
[2023-04-04] MEDS: HEPARIN SODIUM,PORCINE/PF 5,000 UNIT/0.5 ML SYRINGE SQ SCH ×3 (09:02→20:08)
[2023-04-04] MEDS: GABAPENTIN 300 MG CAP PO SCH ×2 (09:02→20:08)
[2023-04-04 10:49] LABS: Basophils # (A) 0.03 X 10*3/uL (0.00-0.10); Basophils % (A) 0.6 %; Eosinophils # (A) 0.11 X 10*3/uL (0.04-0.35); Eosinophils % (A) 2.3 %; HCT 34.5 % (37.2-46.3); HGB 11.5 g/dL (12.0-15.0); Immature Grans, Automated 0.4 %; Lymphocytes # (A) 0.93 X 10*3/uL (0.90-5.00); Lymphocytes % (A) 19.5 %; MCH 29.3 pg (27.0-32.0); MCHC 33.3 g/dL (32.0-37.0); Mean Platelet Volume 8.9 fL (9.5-12.2); Monocytes % (A) 14.7 %; NRBC Per 100 WBC 0 /100 WBCS (0.0-0.0); Neutrophils # (A) 2.98 X 10*3/uL (1.80-7.70); Neutrophils % (A) 62.5 %; Platelet Count 141 X 10*3/uL (140-440); RBC 3.92 X 10*6/uL (4.10-5.20); WBC 4.77 X 10*3/uL (4.50-10.00)
[2023-04-04 11:08] LABS: African American GFR (CKD) 47.6 (60.0-200.0); Anion Gap 9.7 mmol/L (10.00-18.00); BUN/Creat Ratio 8.73 Ratio (12.00-20.00); Blood Urea Nitrogen 13.1 mg/dL (9.0-27.0); Calcium 8.8 mg/dL (8.7-10.3); Carbon Dioxide 25.3 mmol/L (20.0-27.5); Non-African American GFR(CKD) 41.1 (60.0-200.0); Potassium 3.8 mmol/L (3.5-5.5)
[2023-04-04] MEDS: AMITRIPTYLINE HCL 25 MG TAB PO SCH (20:08)
[2023-04-05] MEDS: LEVOTHYROXINE 75 MCG TAB PO SCH (06:00)
[2023-04-05] MEDS: SODIUM CHLORIDE 0.9% 1,000 ML IV SCH ×2 (06:00→20:18)
[2023-04-05] MEDS: DOCUSATE 100 MG CAP PO SCH ×2 (07:57→20:16)
[2023-04-05] MEDS: GABAPENTIN 300 MG CAP PO SCH ×2 (07:57→20:16)
[2023-04-05] MEDS: KETOROLAC 15 MG/ML 1 ML VIAL IVP PRN ×2 (07:57→18:07)
[2023-04-05] MEDS: HEPARIN SODIUM,PORCINE/PF 5,000 UNIT/0.5 ML SYRINGE SQ SCH ×3 (07:58→20:22)
[2023-04-05 08:23] LABS: Basophils % (A) 1 %; Eosinophils # (A) 0.1 k/uL (0-0.7); Eosinophils % (A) 2 %; HCT 35.5 % (34.0-46.0); HGB 12.5 gm/dL (11.4-16.0); Lymphocytes # (A) 0.9 k/uL (1.0-4.8); Lymphocytes % (A) 19 %; MCH 30.3 pg (25.0-35.0); MCHC 35.3 g/dL (31.0-37.0); MCV 85.8 fL (80.0-100.0); Mean Platelet Volume 7.3; Monocytes # (A) 0.4 k/uL (0-1.0); Monocytes % (A) 9 %; Neutrophils # (A) 3.3 k/uL (1.3-7.7); Neutrophils % (A) 67 %; Platelet Count 174 k/uL (150-450); RBC 4.14 m/uL (3.80-5.40); RDW 12.6 % (11.5-15.5); WBC 4.9 k/uL (3.8-10.6)
[2023-04-05 08:34] LABS: African American GFR (CKD) 54 (>60 ml/min/1.73 sqM); Anion Gap 9 mmol/L; Blood Urea Nitrogen 14 mg/dL (7-17); Calcium 8.8 mg/dL (8.4-10.2); Carbon Dioxide 25 mmol/L (22-30); Chloride 106 mmol/L (98-107); Glucose 106 mg/dL (74-99); Non-African American GFR(CKD) 46 (>60 ml/min/1.73 sqM); Potassium 4.1 mmol/L (3.5-5.1); Sodium 140 mmol/L (137-145)
--- NOTE | 2023-04-05 10:42 | P.GSCN ---
History of Present Illness Consult date: 04/05/23 Reason for Consult: Hydronephrosis Requesting physician: Kaylan Damian History of present illness: The patient is a 47-year-old white female with a history of urolithiasis. She has previously undergone a right percutaneous nephrolithotomy (PCNL) as well as a buccal mucosal graft ureteroplasty for a right ureteral stricture. She states that the right kidney provides only approximately 30% of her overall kidney function. She presented to the ER on 04/01/2023 with left flank pain radiating to the left abdomen, associated with nausea and vomiting. CT scan showed evidence of mild left hydroureteronephrosis. She was discharged home on antibiotics for treatment of presumed pyelonephritis but returned on 04/03/23 with symptoms which had worsened. Unfortunately, a urine culture was not obtained on 04/01/2023. The urine culture obtained on 04/03/2023 was negative. This morning she reports that she is feeling somewhat better. She does report urinary frequency but attributes that to not taking amitriptyline, which she takes at home. Review of Systems - Constitutional Denies chills, Denies fever - Gastrointestinal Reports nausea, Reports vomiting - Genitourinary Genitourinary: Reports flank pain, Reports kidney stones, Reports urinary frequency Past Medical History Past Medical History: Fibromyalgia, Thyroid Disorder Additional Past Medical History / Comment(s): kidney stones History of Any Multi-Drug Resistant Organisms: None Reported Past Surgical History: Section, Cholecystectomy, Hysterectomy Additional Past Surgical History / Comment(s): right ureter replacement Past Psychological History: No Psychological Hx Reported Smoking Status: Never smoker Past Alcohol Use History: None Reported Past Drug Use History: None Reported Medications and Allergies Home Medications Medication Instructions Recorded Confirmed Type Acetaminophen Tab [Tylenol Tab] 1,000 mg PO Q6H PRN 04/01/23 04/03/23 History Amitriptyline HCl [Elavil] 25 mg PO HS 04/01/23 04/03/23 History Cefpodoxime Proxetil [Vantin] 200 mg PO Q12HR 10 Days #20 tab 04/01/23 04/03/23 Rx Cholecalciferol [Vitamin D3 (125 125 mcg PO DAILY 04/01/23 04/03/23 History Mcg = 5000 Iu)] Cyclobenzaprine [Flexeril] 10 mg PO TID PRN 04/01/23 04/03/23 History Docusate [Colace] 100 mg PO BID 04/01/23 04/03/23 History Gabapentin 300 mg PO BID 04/01/23 04/03/23 History Levothyroxine Sodium [Synthroid] 75 mcg PO AC-BRKFST 04/01/23 04/03/23 History Meloxicam [Mobic] 7.5 mg PO DAILY 04/01/23 04/03/23 History Meloxicam [Mobic] 7.5 mg PO HS PRN 04/01/23 04/03/23 History polyethylene glycoL 3350 [Miralax] 17 gm PO BID 04/01/23 04/03/23 History Allergies Allergy/AdvReac Type Severity Reaction Status Date / Time sulfamethoxazole Allergy Anaphylaxis Verified 04/03/23 16:51 [From Bactrim] trimethoprim [From Bactrim] Allergy Anaphylaxis Verified 04/03/23 16:51 Surgical - Exam Vital Signs Temp Pulse Resp BP Pulse Ox 98.2 F 82 18 163/100 97 04/03/23 10:17 04/03/23 10:17 04/03/23 10:17 04/03/23 10:17 04/03/23 10:17 - General well developed, well nourished, no distress - Neck no masses, trachea midline - Respiratory normal respiratory effort - Abdomen Soft, non-distended, no mass. Mild lower abdominal tenderness, greater on the right. No guarding or rebound. - Psychiatric oriented to time, oriented to person, oriented to place, speech is normal, memory intact Results - Labs 04/05/23 08:05 04/05/23 08:05 Abnormal Lab Results - Last 24 Hours (Table) 04/04/23 04/04/23 Range/Units 05:39 05:39 RBC 3.92 L (4.10-5.20) X 10*6/uL Hgb 11.5 L (12.0-15.0) g/dL Hct 34.5 L (37.2-46.3) % MPV 8.9 L (9.5-12.2) fL Anion Gap 9.70 L (10.00-18.00) mmol/L Est GFR (CKD-EPI)AfAm 47.6 L (60.0-200.0) Est GFR (CKD-EPI)NonAf 41.1 L (60.0-200.0) BUN/Creatinine Ratio 8.73 L (12.00-20.00) Ratio Microbiology - Last 24 Hours (Table) 04/03/23 10:35 Urine Culture - Final Urine,Voided Diabetes panel 04/04/23 Range/Units 05:39 Sodium 139 (135-145) mmol/L Potassium 3.8 (3.5-5.5) mmol/L Chloride 104 (96-109) mmol/L Carbon Dioxide 25.3 (20.0-27.5) mmol/L BUN 13.1 (9.0-27.0) mg/dL Creatinine 1.5 (0.6-1.5) mg/dL Glucose 95 (70-110) mg/dL Calcium 8.8 (8.7-10.3) mg/dL Calcium panel 04/04/23 Range/Units 05:39 Calcium 8.8 (8.7-10.3) mg/dL Pituitary panel 04/04/23 Range/Units 05:39 Sodium 139 (135-145) mmol/L Potassium 3.8 (3.5-5.5) mmol/L Chloride 104 (96-109) mmol/L Carbon Dioxide 25.3 (20.0-27.5) mmol/L BUN 13.1 (9.0-27.0) mg/dL Creatinine 1.5 (0.6-1.5) mg/dL Glucose 95 (70-110) mg/dL Calcium 8.8 (8.7-10.3) mg/dL Adrenal panel 04/04/23 Range/Units 05:39 Sodium 139 (135-145) mmol/L Potassium 3.8 (3.5-5.5) mmol/L Chloride 104 (96-109) mmol/L Carbon Dioxide 25.3 (20.0-27.5) mmol/L BUN 13.1 (9.0-27.0) mg/dL Creatinine 1.5 (0.6-1.5) mg/dL Glucose 95 (70-110) mg/dL Calcium 8.8 (8.7-10.3) mg/dL - Imaging CT scan - abdomen: report reviewed, image reviewed US - kidney/bladder: report reviewed Assessment and Plan Assessment: I have reviewed the patient's CT scan. There appears to be at least one 2 mm right lower pole renal calculus. I see no evidence of right hydronephrosis, and the right ureter is normal in caliber. There is evidence of mild left hydronephrosis, and the caliber of the left ureter appears to be dilated to a very minimal degree. No left-sided calculi are seen. The patient reports pain which is predominantly left-sided and is improving. The differential diagnosis includes resolving UTI, recently passed left ureteral calculus, and left ureteral obstruction due to something other than a ureteral calculus. (1) Hydronephrosis Current Visit: Yes Status: Acute Code(s): N13.30 - UNSPECIFIED HYDR ONEPHROSIS SNOMED Code(s): 05206547 Plan: Continue ceftriaxone, IV hydration, and parenteral analgesics. I do not feel that any further evaluation is needed if she continues to symptomatically improve. If her symptoms resolve, I would suggest a renal ultrasound be obtained in 1 month to confirm resolution of her hydronephrosis. If her sym ptoms fail to resolve, she should undergo cystoscopy, left retrograde pyelogram, possible ureteroscopy, possible left ureteral stent insertion. Time with Patient: Greater than 30
--- NOTE | 2023-04-05 15:34 | P.PN ---
Subjective Progress Note Date: 04/05/23 Patient is a 47-year-old female with known history of fibromyalgia, hypothyroidism and prior history of right /renal stones presents to ER with complaints of worsening left flank pain radiating across to the abdomen. Patient was also having episodes of nausea and vomiting. Patient was seen in the ER on 04/03/2023 with similar symptoms and work-up including CT of the abdomen pelvis showed nonobstructing renal stones right kidney and there is some mild bilateral hydronephrosis and mild hydroureter extending to the urinary bladder. Obstructing ureteral stones however not identified. Patient was sent home with antibiotics, Vantin. Patient presented back to ER due to worsening flank pain and she woke up with pain this morning. Patient states that she continues to have dysuria and urinary frequency. Denies any blood in the urine. No complaints of chest pain or shortness of breath. No headache or dizziness or lightheadedness. Ultrasound abdomen/bladder showed ongoing mild to moderate left hydronephrosis. Incidental hepatic steatosis. KUB x-ray showed nonspecific abdominal. Punctate right hemipelvic calcifications within the vascular lower pole renal calculi noted by recent CT scan not as well seen today. Patient was afebrile on admission. Laboratory data showed WBC 7.0 hemoglobin 13 point platelets 187 BUN 13 and creatinine 1.48 Urinalysis showed turbid with 2+ glucose large blood large leukocyte esterase with elevated RBCs and WBCs. 04/05. Patient seen and examined. White count this morning is 4.9, hemoglobin 12.5, platelet count 174, sodium 140, potassium 4.1, BUN 14, creatinine 1.36 REVIEW OF SYSTEMS: CONSTITUTIONAL: No fever, no malaise,. CARDIOVASCULAR: No chest pain, no palpitations, no syncope. PULMONARY: No shortness of breath, no cough, GASTROINTESTINAL: No diarrhea, no nausea, no vomiting, no abdominal pain. NEUROLOGICAL: No headaches, no weakness, PHYSICAL EXAMINATION: GENERAL: The patient is alert and oriented x3, not in any acute distress. Well developed, well nourished. HEENT: Pupils are round and equally reacting to light. EOMI. No scleral icterus. No conjunctival pallor. Normocephalic, atraumatic. No pharyngeal erythema. No thyromegaly. CARDIOVASCULAR: S1 and S2 present. No murmurs, rubs, or gallops. PULMONARY: Chest is clear to auscultation, no wheezing or crackles. ABDOMEN: Soft, nontender, nondistended, normoactive bowel sounds. No palpable organomegaly. MUSCULOSKELETAL: No joint swelling or deformity. EXTREMITIES: No cyanosis, clubbing, or pedal edema. NEUROLOGICAL: Gross neurological examination did not reveal any focal deficits. SKIN: No rashes. Assessment and plan Acute pyelonephritis with left flank pain. Failed outpatient antibiotic therapy. Mild to moderate hydronephrosis left. Mild acute kidney injury Obesity with BMI 37.8 Fibromyalgia Hypothyroidism History of nephrostomy tube on the right side and removal. DVT prophylaxis with heparin subcu Monitor vital signs Monitor CBC Monitor CMP Continue telemetry monitoring Continue IV Rocephin Continue IV fluids Follow-up on urology recommendations Objective - Vital Signs Vital signs: Vital Signs Temp 99.1 F 04/05/23 07:30 Pulse 81 04/05/23 07:30 Resp 18 04/05/23 07:46 BP 139/90 04/05/23 07:30 Pulse Ox 94 L 04/05/23 07:30 FiO2 Intake & Output 04/04/23 04/05/23 04/05/23 18:59 06:59 18:59 Intake Total 538 Output Total 0 Balance 538 0 Intake: Oral 538 Output: Emesis 0 Other: Voiding Method Toilet Toilet Toilet # Voids 3 1 # Bowel Movements 1 - Labs CBC & Chem 7: 04/05/23 08:05 04/05/23 08:05 Labs: Abnormal Lab Results - Last 24 Hours (Table) 04/04/23 04/04/23 04/05/23 Range/Units 05:39 05:39 08:05 RBC 3.92 L (4.10-5.20) X 10*6/uL Hgb 11.5 L (12.0-15.0) g/dL Hct 34.5 L (37.2-46.3) % MPV 8.9 L (9.5-12.2) fL Lymphocytes # 0.9 L (1.0-4.8) k/uL Anion Gap 9.70 L (10.00-18.00) mmol/L Creatinine (0.52-1.04) mg/dL Est GFR (CKD-EPI)AfAm 47.6 L (60.0-200.0) Est GFR (CKD-EPI)NonAf 41.1 L (60.0-200.0) BUN/Creatinine Ratio 8.73 L (12.00-20.00) Ratio Glucose (74-99) mg/dL 04/05/23 Range/Units 08:05 RBC (4.10-5.20) X 10*6/uL Hgb (12.0-15.0) g/dL Hct (37.2-46.3) % MPV (9.5-12.2) fL Lymphocytes # (1.0-4.8) k/uL Anion Gap (10.00-18.00) mmol/L Creatinine 1.36 H (0.52-1.04) mg/dL Est GFR (CKD-EPI)AfAm (60.0-200.0) Est GFR (CKD-EPI)NonAf (60.0-200.0) BUN/Creatinine Ratio (12.00-20.00) Ratio Glucose 106 H (74-99) mg/dL Microbiology - Last 24 Hours (Table) 04/03/23 10:35 Urine Culture - Final Urine,Voided
[2023-04-05] MEDS: AMITRIPTYLINE HCL 25 MG TAB PO SCH (20:16)
[2023-04-06 04:05] VITALS: PULSE 75
[2023-04-06] MEDS: LEVOTHYROXINE 75 MCG TAB PO SCH (06:10)
[2023-04-06] MEDS: DOCUSATE 100 MG CAP PO SCH (08:25)
[2023-04-06] MEDS: HEPARIN SODIUM,PORCINE/PF 5,000 UNIT/0.5 ML SYRINGE SQ SCH (08:25)
[2023-04-06] MEDS: GABAPENTIN 300 MG CAP PO SCH (08:25)
[2023-04-06 08:30] VITALS: RESP 18
[2023-04-06 08:42] VITALS: BP 163/94; TEMP 98.6
--- NOTE | 2023-04-06 11:06 | P.PN ---
Subjective Progress Note Date: 04/06/23 Principal diagnosis: Left hydronephrosis The patient is a 47-year-old white female with a history of urolithiasis. She has previously undergone a right percutaneous nephrolithotomy (PCNL) as well as a buccal mucosal graft ureteroplasty for a right ureteral stricture. She states that the right kidney provides only approximately 30% of her overall kidney function. She presented to the ER on 04/01/2023 with left flank pain radiating to the left abdomen, associated with nausea and vomiting. CT scan showed evidence of mild left hydroureteronephrosis. She was discharged home on antibiotics for treatment of presumed pyelonephritis but returned on 04/03/23 with symptoms which had worsened. Unfortunately, a urine culture was not obtained on 04/01/2023. The urine culture obtained on 04/03/2023 was negative. He is being treated with IV antibiotics and continues to feel better. Specifically, she states that her pain is significantly improved. She currently denies nausea and vomiting. Objective - Vital Signs Vital signs: Vital Signs Temp 98.4 F 04/06/23 03:27 Pulse 75 04/06/23 03:27 Resp 16 04/06/23 03:27 BP 158/92 04/06/23 03:27 Pulse Ox 93 L 04/06/23 03:27 FiO2 Intake & Output 04/05/23 04/06/23 04/06/23 18:59 06:59 18:59 Intake Total 540 480 Balance 540 480 Intake: Oral 540 480 Other: Voiding Method Toilet # Voids 3 # Bowel Movements 1 - Constitutional General appearance: Present: average body habitus, no acute distress - Psychiatric Psychiatric: Present: A&O x's 3 - Labs CBC & Chem 7: 04/05/23 08:05 04/05/23 08:05 Labs: Abnormal Lab Results - Last 24 Hours (Table) 04/05/23 04/05/23 Range/Units 08:05 08:05 Lymphocytes # 0.9 L (1.0-4.8) k/uL Creatinine 1.36 H (0.52-1.04) mg/dL Glucose 106 H (74-99) mg/dL Microbiology - Last 24 Hours (Table) 04/03/23 18:21 Blood Culture - Preliminary Blood Assessment and Plan Assessment: I have reviewed the patient's CT scan. There appears to be at least one 2 mm right lower pole renal calculus. I see no evidence of right hydronephrosis, and the right ureter is normal in caliber. There is evidence of mild left hydronephrosis, and the caliber of the left ureter appears to be dilated to a very minimal degree. No left-sided calculi are seen. The patient reports pain which is predominantly left-sided and is improving. The differential diagnosis includes resolving UTI, recently passed left ureteral calculus, and left ureteral obstruction due to something other than a ureteral calculus. The fact her condition is improving suggest that the latter is the least likely scenario. c (1) Hydronephrosis Current Visit: Yes Status: Acute Code(s): N13.30 - UNSPECIFIED HYDRONEPHROSIS SNOMED Code(s): 24027721 Plan: The patient is currently receiving ceftriaxone, IV hydration, and parenteral analgesics. Given her symptomatic improvement, I think it is reasonable for her to be discharged home on oral antibiotics. She will follow-up with me in 2 weeks. At some point, a renal ultrasound will be obtained to confirm resolution of her hydronephrosis. Please notify me if I can be of any further assistance during this hospitalization.
[2023-04-06] MEDS: SODIUM CHLORIDE 0.9% 1,000 ML IV SCH (11:49)
--- NOTE | 2023-04-06 12:44 | P.DS ---
Providers Date of admission: 04/03/23 14:38 Expected date of discharge: 04/06/23 Attending physician: Kaylan Damian Consults: 04/04/23 16:03 Consult Physician Routine Consulting Provider: Slava Mejia Consult Reason/Comments: moderate left hydronephrosis Do you want consulting provider notified?: Yes Primary care physician: Stated None Hospital Course: Discharge diagnoses; Acute pyelonephritis with left flank pain. Failed outpatient antibiotic therapy. Mild to moderate hydronephrosis left. Mild acute kidney injury Obesity with BMI 37.8 Fibromyalgia Hypothyroidism History of nephrostomy tube on the right side and removal. Hospital course; Patient is a 47-year-old female with known history of fibromyalgia, hypothy roidism and prior history of right /renal stones presents to ER with complaints of worsening left flank pain radiating across to the abdomen. Patient was also having episodes of nausea and vomiting. Patient was seen in the ER on 04/03/2023 with similar symptoms and work-up including CT of the abdomen pelvis showed nonobstructing renal stones right kidney and there is some mild bilateral hydronephrosis and mild hydroureter extending to the urinary bladder. Obstructing ureteral stones however not identified. Patient was sent home with antibiotics, Vantin. Patient presented back to ER due to worsening flank pain and she woke up with pain this morning. Patient states that she continues to have dysuria and urinary frequency. Denies any blood in the urine. No complaints of chest pain or shortness of breath. No headache or dizziness or lightheadedness. Ultrasound abdomen/bladder showed ongoing mild to moderate left hydronephrosis. Incidental hepatic steatosis. KUB x-ray showed nonspecific abdominal. Punctate right hemipelvic calcifications within the vascular lower pole renal calculi noted by recent CT scan not as well seen today. Patient was afebrile on admission. Laboratory data showed WBC 7.0 hemoglobin 13 point platelets 187 BUN 13 and creatinine 1.48 Urinalysis showed turbid with 2+ glucose large blood large leukocyte esterase with elevated RBCs and WBCs. 04/05. Patient seen and examined. White count this morning is 4.9, hemoglobin 12.5, platelet count 174, sodium 140, potassium 4.1, BUN 14, creatinine 1.36 04/06. Patient seen and examined. No acute issues overnight. Being discharged on oral Ceftin for 8 more days, patient given a paper prescription. Outpatient follow-up with urology PHYSICAL EXAMINATION: GENERAL: The patient is alert and oriented x3, not in any acute distress. Well developed, well nourished. HEENT: Pupils are round and equally reacting to light. EOMI. No scleral icterus. No conjunctival pallor. Normocephalic, atraumatic. No pharyngeal erythema. No thyromegaly. CARDIOVASCULAR: S1 and S2 present. No murmurs, rubs, or gallops. PULMONARY: Chest is clear to auscultation, no wheezing or crackles. ABDOMEN: Soft, nontender, nondistended, normoactive bowel sounds. No palpable organomegaly. MUSCULOSKELETAL: No joint swelling or deformity. EXTREMITIES: No cyanosis, clubbing, or pedal edema. NEUROLOGICAL: Gross neurological examination did not reveal any focal deficits. SKIN: No rashes. Patient Condition at Discharge: Stable Plan - Discharge Summary New Discharge Prescriptions: New cefUROXime axetiL [Cefuroxime] 500 mg PO BID #16 tab Continue Acetaminophen Tab [Tylenol] 1,000 mg PO Q6H PRN PRN Reason: Pain Docusate [Colace] 100 mg PO BID polyethylene glycoL 3350 [Miralax] 17 gm PO BID Cholecalciferol [Vitamin D3 (125 Mcg = 5000 Iu)] 125 mcg PO DAILY Levothyroxine Sodium [Synthroid] 75 mcg PO AC-BRKFST Cyclobenzaprine [Flexeril] 10 mg PO TID PRN PRN Reason: Muscle Spasm Meloxicam [Mobic] 7.5 mg PO DAILY Meloxicam [Mobic] 7.5 mg PO HS PRN PRN Reason: Pain Gabapentin 300 mg PO BID Amitriptyline HCl [Elavil] 25 mg PO HS Discontinued Cefpodoxime Proxetil [Vantin] 200 mg PO Q12HR 10 Days #20 tab Discharge Medication List Acetaminophen Tab [Tylenol] 1,000 mg PO Q6H PRN 04/01/23 [History] Amitriptyline HCl [Elavil] 25 mg PO HS 04/01/23 [History] Cholecalciferol [Vitamin D3 (125 Mcg = 5000 Iu)] 125 mcg PO DAILY 04/01/23 [ History] Cyclobenzaprine [Flexeril] 10 mg PO TID PRN 04/01/23 [History] Docusate [Colace] 100 mg PO BID 04/01/23 [History] Gabapentin 300 mg PO BID 04/01/23 [History] Levothyroxine Sodium [Synthroid] 75 mcg PO AC-BRKFST 04/01/23 [History] Meloxicam [Mobic] 7.5 mg PO DAILY 04/01/23 [History] Meloxicam [Mobic] 7.5 mg PO HS PRN 04/01/23 [History] polyethylene glycoL 3350 [Miralax] 17 gm PO BID 04/01/23 [History] cefUROXime axetiL [Cefuroxime] 500 mg PO BID #16 tab 04/06/23 [Rx] Follow up Appointment(s)/Referral(s): Jose Carlos Etienne MD [STAFF PHYSICIAN] - 10 Days None,Stated [Primary Care Provider] - 1-2 days Discharge Disposition: HOME SELF-CARE
--- NOTE | 2023-04-11 08:42 | CDI ---
Documentation Clarification Form Date: 04/11/2023 From: Génesis Melendrez Admit Date: 04/03/2023 02:38:00 PM Patient Name: Jeana Christy Visit Number: [id number] Discharge Date: 04/06/2023 01:04:00 PM ATTENTION: The Clinical Documentation Specialists (CDI) and [facility] Coding Staff appreciate your assistance in clarifying documentation. Please respond to the clarification below the line at the bottom and electronically sign. The CDI & [facility] Coding staff will review the response and follow-up if needed. Please note: Queries are made part of the Legal Health Record. If you have any questions, please contact the author of this message via ITS. Dr. Kaylan Damian, Your patient has an abnormal lab value: Non- GFR: 04/03 42, 04/04 41.1, 04/05 46. Please clarify if there is an additional diagnosis and/or clinical significance related to this value. History/Risk Factors: Pyonephrosis, Calculus of Kidney, Hypothyroidism, and Fibromyalgia. Historical BUN/CR/GFR: 04/01 BUN 15/CR 1.34/GFR 47 Clinical Indicators: Hypothyroidism, 04/05 PN She states that the right kidney provides only approximately 30% of her overall kidney function Current BUN/CR/GFR: 04/03 BUN 13/CR 1.48/GFR 48 04/04 BUN 13.1/CR 1.5/GFR 47.6 04/05 BUN 14/CR 1.36/GFR 54 Is there an additional diagnosis and/or clinical significance related to the above lab result/information? [ ] CKD Stage Stage unkown [ ] CKD Stage 1 (GFR > 90) [ ] CKD Stage 2 (GFR 60-89) [ x ] CKD Stage 3 (GFR 30-59) [ ] CKD Stage 3a (GFR 45-59) [ ] CKD Stage 3b (GFR 30-44) [ ] CKD Stage 4 (GFR 15-29) [ ] CKD Stage 5 (GFR <15) [ ] ESRD [ ] Acute Kidney Injury [ ] Acute Renal Failure [ ] Acute Kidney Injury w/ CKD [ ] No additional diagnosis/Not clinically significant [ ] Other, please specify [ ] Unable to determine Reference: KDIGO JOCELYN Criteria An increase in serum creatinine by greater than or equal to 0.3 mg/dL within 48 hours; An increase in serum creatinine by greater than or equal to 1.5 times baseline, which is known or presumed to have occurred within the prior 7 days; A urine volume less than 0.5 ml/kg/h for 6 hours. When the baseline is unknown the lowest creatinine during admission assumed to be baseline MTDD
== END 2023-04-06 13:04 | disposition home or self-care (01) | DRG 690 ==
LOC: EC 10:13 → 6NMEDSUR 14:38
PROVIDERS: ADMIT Internal Medicine; ATTEND Internal Medicine
DX: N13.6 Pyonephrosis (principal); N20.2 Calculus of kidney with calculus of ureter; N18.30 Chronic kidney disease, stage 3 unspecified; K76.0 Fatty (change of) liver, not elsewhere classified; E03.9 Hypothyroidism, unspecified; M79.7 Fibromyalgia; E66.9 Obesity, unspecified; Z68.37 Body mass index [BMI] 37.0-37.9, adult; Z79.890 Hormone replacement therapy; Z79.1 Long term (current) use of non-steroidal anti-inflammatories (NSAID); Z79.899 Other long term (current) drug therapy; Z88.2 Allergy status to sulfonamides; Z87.442 Personal history of urinary calculi
CPT/HCPCS: 36415; 74018; 76770; 80048; 80053; 81001; 81025; 85025; 87040; 87086; 96374; 96375; 99285

== ENCOUNTER 2024-03-02 08:56 | Inpatient (IN) | payer BC ==
[2024-03-02 09:59] LABS: Appearance,Urine Cloudy (Clear); Bacteria,Urine Few /hpf; Bilirubin,Urine 1+ (Negative); Blood,Urine Moderate (Negative); Color,Urine Dark Yellow; Glucose,Urine (UA) Negative (Negative); Ketones,Urine Negative (Negative); Leukocyte Esterase,Urine Large (Negative); Mucus,Urine Rare /hpf; Nitrite,Urine Positive (Negative); PH, Urine 7.5 (5.0-8.0); Protein,Urine 1+ (Negative); RBC,Urine 83 /hpf (0-5); Specific Gravity,Urine 1.012 (1.001-1.035); Squamous Epithelial Cell,Urine 3 /hpf (0-4); WBC,Urine >182 /hpf (0-5)
[2024-03-02] MEDS: SODIUM CHLORIDE 0.9% 1,000 ML IV STA (10:08)
[2024-03-02] MEDS: SODIUM CHLORIDE 0.9% 1,000 ML IV SCH (10:30)
[2024-03-02] MEDS: ONDANSETRON 4 MG/2 ML VIAL IVP STA (10:30)
[2024-03-02] MEDS: ACETAMINOPHEN TAB 500 MG TAB PO STA (10:30)
[2024-03-02] MEDS: SODIUM CHLORIDE 0.9% 1,000 ML IV ONE (10:30)
[2024-03-02 10:45] LABS: ALT 32 U/L (4-34); AST 27 U/L (14-36); African American GFR (CKD) 65 (>60 ml/min/1.73 sqM); Albumin 4.5 g/dL (3.5-5.0); Alkaline Phosphatase 85 U/L (38-126); Anion Gap 8 mmol/L; Blood Urea Nitrogen 14 mg/dL (7-17); Calcium 9.7 mg/dL (8.4-10.2); Carbon Dioxide 27 mmol/L (22-30); Chloride 102 mmol/L (98-107); Glucose 130 mg/dL (74-99); Lipase 62 U/L (23-300); Non-African American GFR(CKD) 57 (>60 ml/min/1.73 sqM); Potassium 4.3 mmol/L (3.5-5.1); Sodium 137 mmol/L (137-145); Total Bilirubin 0.8 mg/dL (0.2-1.3); Total Protein 7.6 g/dL (6.3-8.2)
[2024-03-02 10:58] LABS: Basophils % (A) 0 %; Eosinophils % (A) 1 %; HCT 41.7 % (34.0-46.0); HGB 14.5 gm/dL (11.4-16.0); Lymphocytes # (A) 0.6 k/uL (1.0-4.8); Lymphocytes % (A) 8 %; MCH 30.5 pg (25.0-35.0); MCHC 34.7 g/dL (31.0-37.0); Mean Platelet Volume 7.2; Monocytes # (A) 0.5 k/uL (0-1.0); Monocytes % (A) 7 %; Neutrophils # (A) 6.4 k/uL (1.3-7.7); Neutrophils % (A) 84 %; Platelet Count 163 k/uL (150-450); RBC 4.74 m/uL (3.80-5.40); RDW 12.3 % (11.5-15.5); WBC 7.6 k/uL (3.8-10.6)
--- NOTE | 2024-03-02 11:25 | CT ---
EXAMINATION TYPE: CT abdomen pelvis wo/w con DATE OF EXAM: 03/02/2024 COMPARISON: 04/01/2023 INDICATION: painful urination, bilateral flank pain, h/o right ureter reconstruction in 2018 DLP: 2629 mGycm, Automated exposure control for dose reduction was used. CONTRAST: 100 ml mL of Isovue 300. Study performed without Oral Contrast TECHNIQUE: Axial images were obtained from above the diaphragm to the pubic rami in the axial plane a t 5 mm thick sections. Reconstructed images are reviewed on the computer in the coronal plane. FINDINGS: Limited CT sections are obtained the lung bases. The lung bases are clear. There is a small develop ing pericardial effusion. CT ABDOMEN: Liver: Normal Spleen: Normal Pancreas: Normal Adrenal glands: The adrenal glands are normal. Gallbladder: Radically absent Kidneys: No masses are evident. There is a moderate right hydronephrosis. Obstructing 0.8 cm calcific ation is in the proximal right ureter below the ureteropelvic junction and proximal right ureter. Sma ll calcification measuring 0.3 cm at the inferior pole right kidney There is a 1.3 cm cyst lateral ruiz perior pole right kidney. Post contrast imaging is performed. There is delayed excretion on the righ t compared to the left. Aorta: Normal Inferior vena cava: Normal. CT PELVIS: Loops of bowel within the abdomen and pelvis are normal. Study is without oral contrast limiting bowel evaluation. Appendix: Normal as visualized. Urinary bladder: Normal. Genitourinary structures: Uterus and ovaries are not identified. Osseous structures: No suspicious lytic or sclerotic lesions. IMPRESSION: 1. Obstructing 0.8 cm proximal right ureteral stone with moderate right hydronephrosis. There is del ayed excretion on the right compared to the left kidney. 2. Developing small pericardial effusion.
--- NOTE | 2024-03-02 11:49 | ED ---
Abdominal Pain HPI - General Chief Complaint: Abdominal Pain Stated Complaint: abd pain Time Seen by Provider: 03/02/24 09:00 Source: patient Mode of arrival: ambulatory Limitations: no limitations - History of Present Illness Initial Comments: 48-year-old female who presents emergency department reporting right flank pain. States it has been going on since Friday. Friday she went to an urgent care and was diagnosed with a urinary tract infection. She was placed on Macrobid. States she continues to have worsening pain. Patient arrives tachycardic with a fever. She does have history of previous kidney stones. She did have ureteral repair due to scar tissue. States that she has been told she has normal kidney function since her surgery in 2018. Patient admits to nausea. No vomiting. No concern for . No other alleviating, precipitating or modifying factors - Related Data Home Medications Medication Instructions Recorded Confirmed Acetaminophen Tab [Tylenol] 500 mg PO DAILY 04/01/23 03/02/24 Cholecalciferol [Vitamin D3 (125 125 mcg PO DAILY 04/01/23 03/02/24 Mcg = 5000 Iu)] Cyclobenzaprine [Flexeril] 10 mg PO TID PRN 04/01/23 03/02/24 Docusate [Colace] 100 mg PO BID PRN 04/01/23 03/02/24 Gabapentin 300 mg PO BID 04/01/23 03/02/24 Levothyroxine Sodium [Synthroid] 75 mcg PO DAILY 04/01/23 03/02/24 Cyanocobalamin (Vitamin B-12) 1,000 mcg PO DAILY 03/02/24 03/02/24 [Vitamin B-12] Magnesium 200 mg PO HS 03/02/24 03/02/24 Multivitamins, Thera [Multivitamin 1 tab PO DAILY 03/02/24 03/02/24 (formulary)] traMADol HCL 50 mg PO Q6H PRN 03/02/24 03/02/24 Allergies Allergy/AdvReac Type Severity Reaction Status Date / Time Sulfa (Sulfonamide Allergy Anaphylaxis Verified 03/02/24 10:54 Antibiotics) sulfamethoxazole Allergy Anaphylaxis Verified 03/02/24 10:54 [From Bactrim] trimethoprim [From Bactrim] Allergy Anaphylaxis Verified 03/02/24 10:54 Review of Systems ROS Statement: Those systems with pertinent positive or pertinent negative responses have been documented in the HPI. ROS Other: All systems not noted in ROS Statement are negative. Past Medical History Past Medical History: Fibromyalgia, Thyroid Disorder Additional Past Medical History / Comment(s): kidney stones, History of Any Multi-Drug Resistant Organisms: None Reported Past Surgical History: Section, Cholecystectomy, Hysterectomy Additional Past Surgical History / Comment(s): right ureter replacement Past Psychological History: No Psychological Hx Reported Smoking Status: Never smoker Past Alcohol Use History: None Reported Past Drug Use History: None Reported General Exam Limitations: no limitations General appearance: alert, in no apparent distress Head exam: Present: atraumatic, normocephalic, normal inspection Eye exam: Present: normal appearance, PERRL, EOMI. Absent: scleral icterus, conjunctival injection, periorbital swelling ENT exam: Present: normal exam, mucous membranes moist Neck exam: Present: normal inspection. Absent: tenderness, meningismus, lymphadenopathy Respiratory exam: Present: normal lung sounds bilaterally. Absent: respiratory distress, wheezes, rales, rhonchi, stridor Cardiovascular Exam: Present: normal rhythm, tachycardia, normal heart sounds. Absent: systolic murmur, diastolic murmur, rubs, gallop, clicks GI/Abdominal exam: Present: soft, normal bowel sounds. Absent: distended, tenderness, guarding, rebound, rigid Extremities exam: Present: normal inspection, full ROM, normal capillary refill. Absent: tenderness, pedal edema, joint swelling, calf tenderness Back exam: Present: normal inspection Neurological exam: Present: alert, oriented X3, CN II-XII intact Psychiatric exam: Present: normal affect, normal mood Skin exam: Present: warm, dry, intact, normal color. Absent: rash Course Vital Signs 03/02/24 03/02/24 03/02/24 08:57 11:43 14:27 Temperature 101.3 F H 98.8 F 99.9 F H Pulse Rate 116 H 110 H 98 Respiratory 20 18 18 Rate Blood Pressure 155/105 114/75 135/81 O2 Sat by Pulse 99 95 99 Oximetry 03/02/24 03/02/24 15:45 17:19 Temperature 98.8 F 102.3 F H Pulse Rate 102 H 105 H Respiratory 18 18 Rate Blood Pressure 128/76 146/93 O2 Sat by Pulse 97 99 Oximetry Medical Decision Making - Medical Decision Making Was pt. sent in by a medical professional or institution ([facility]SE[facility] Danielle, DETENTION WORKER, urgent care, hospital, or custodial...) When possible be specific @ -No Did you speak to anyone other than the patient for history (EMS, parent, family, police, friend...)? What history was obtained from this source @ -No Did you review nursing and triage notes (agree or disagree)? Why? @ -I reviewed and agree with nursing and triage notes Were old charts reviewed (outside hosp., previous admission, EMS record, old EKG, old radiological studies, urgent care reports/EKG's, custodial records)? Report findings @ -No old charts were reviewed Differential Diagnosis (chest pain, altered mental status, abdominal pain women, abdominal pain men, vaginal bleeding, weakness, fever, dyspnea, syncope, headache, dizziness, GI bleed, back pain, seizure, CVA, palpatations, mental health, musculoskeletal)? @ -Pyelonephritis, UTI, ureteral stone, septic stone EKG interpreted by me (3pts min.). @ -Not done X-rays interpreted by me (1pt min.). @ -None done CT interpreted by me (1pt min.). @ -Yes and demonstrates a ureteral stone U/S interpreted by me (1pt. min.). @ -None done What testing was considered but not performed or refused? (CT, X-rays, U/S, labs)? Why? @ -None What meds were considered but not given or refused? Why? @ -None Did you discuss the management of the patient with other professionals (professionals i.e. JOSEPH Danielle, DETENTION WORKER, lab, RT, psych nurse, oncology social worker, senior qualitative researcher, teacher, maritime officer, corrections caseworker)? Give summary @ -Spoke with Dr. Carr. Also spoke with Dr. Wilder who will admit the patient Was smoking cessation discussed for >3mins.? @ -No Was critical care preformed (if so, how long)? @ -Yes, 35 minutes for evaluation of sepsis with obstructing stone Were there social determinants of health that impacted care today? How? (Homelessness, low income, unemployed, alcoholism, drug addiction, transportation, low edu. Level, literacy, decrease access to med. care, [facility], r ehab)? @ -No Was there de-escalation of care discussed even if they declined (Discuss DNR or withdrawal of care, Hospice)? DNR status @ -No What co-morbidities impacted this encounter? (DM, HTN, Smoking, COPD, CAD, Cancer, CVA, ARF, Chemo, Hep., AIDS, mental health diagnosis, sleep apnea, morbid obesity)? @ -None Was patient admitted / discharged? Hospital course, mention meds given and route, prescriptions, significant lab abnormalities, going to OR and other pertinent info. @ -Upon arrival patient was seen and evaluated in hallway 22. Thorough history and physical exam was performed. IV was established. Laboratory studies were conducted. Patient was given IV fluids. CT was performed. Patient does have urinary tract infection with a ureteral stone. Patient does meet criteria for septic stone. I did call and speak with Dr. Reyes. Patient is NPO. She is admitted to Dr. Wilder with urology on consult for stent placement. Patient understood the treatment plan and was awaiting a bed on the floor in stable condition Undiagnosed new problem with uncertain prognosis? @ -No Drug Therapy requiring intensive monitoring for toxicity (Heparin, Nitro, Insulin, Cardizem)? @ -No Were any procedures done? @ -No Diagnosis/symptom? @ -Acute right-sided flank pain, acute septic stone right ureter Acute, or Chronic, or Acute on Chronic? @ -Acute Uncomplicated (without systemic symptoms) or Complicated (systemic symptoms)? @ -Complicated Side effects of treatment? @ -No Exacerbation, Progression, or Severe Exacerbation? @ -No Poses a threat to life or bodily function? How? (Chest pain, [place], [place], pneumonia, PE, COPD, DKA, ARF, appy, cholecystitis, CVA, Diverticulitis, Homicidal, Suicidal, threat to staff... and all critical care pts) @ -Yes as patient can get extremely ill from septic stone Sepsis source is identified at 10:09 AM when UA does return - Lab Data Result diagrams: 03/03/24 06:50 03/03/24 06:50 Lab Results 03/02/24 03/02/24 03/02/24 Range/Units 09:08 10:08 10:08 WBC 7.6 (3.8-10.6) k/uL RBC 4.74 (3.80-5.40) m/uL Hgb 14.5 (11.4-16.0) gm/dL Hct 41.7 (34.0-46.0) % MCV 88.0 (80.0-100.0) fL MCH 30.5 (25.0-35.0) pg MCHC 34.7 (31.0-37.0) g/dL RDW 12.3 (11.5-15.5) % Plt Count 163 (150-450) k/uL MPV 7.2 Neutrophils % 84 % Lymphocytes % 8 % Monocytes % 7 % Eosinophils % 1 % Basophils % 0 % Neutrophils # 6.4 (1.3-7.7) k/uL Lymphocytes # 0.6 L (1.0-4.8) k/uL Monocytes # 0.5 (0-1.0) k/uL Eosinophils # 0.0 (0-0.7) k/uL Basophils # 0.0 (0-0.2) k/uL Sodium 137 (137-145) mmol/L Potassium 4.3 (3.5-5.1) mmol/L Chloride 102 (98-107) mmol/L Carbon Dioxide 27 (22-30) mmol/L Anion Gap 8 mmol/L BUN 14 (7-17) mg/dL Creatinine 1.15 H (0.52-1.04) mg/dL Est GFR (CKD-EPI)AfAm 65 (>60 ml/min/1.73 sqM) Est GFR (CKD-EPI)NonAf 57 (>60 ml/min/1.73 sqM) Glucose 130 H (74-99) mg/dL Plasma Lactic Acid Mazin (0.7-2.0) mmol/L Calcium 9.7 (8.4-10.2) mg/dL Total Bilirubin 0.8 (0.2-1.3) mg/dL AST 27 (14-36) U/L ALT 32 (4-34) U/L Alkaline Phosphatase 85 (38-126) U/L Total Protein 7.6 (6.3-8.2) g/dL Albumin 4.5 (3.5-5.0) g/dL Lipase 62 (23-300) U/L Urine Color Dark Yellow Urine Appearance Cloudy H (Clear) Urine pH 7.5 (5.0-8.0) Ur Specific [place] 1.012 (1.001-1.035) Urine Protein 1+ H (Negative) Urine Glucose (UA) Negative (Negative) Urine Ketones Negative (Negative) Urine Blood Moderate H (Negative) Urine Nitrite Positive H (Negative) Urine Bilirubin 1+ H (Negative) Urine Urobilinogen 3.0 (<2.0) mg/dL Ur Leukocyte Esterase Large H (Negative) Urine RBC 83 H (0-5) /hpf Urine WBC >182 H (0-5) /hpf Urine WBC Clumps Few H (None) /hpf Ur Squamous Epith Cells 3 (0-4) /hpf Urine Bacteria Few H (None) /hpf Urine Mucus Rare H (None) /hpf 03/02/24 Range/Units 10:08 WBC (3.8-10.6) k/uL RBC (3.80-5.40) m/uL Hgb (11.4-16.0) gm/dL Hct (34.0-46.0) % MCV (80.0-100.0) fL MCH (25.0-35.0) pg MCHC (31.0-37.0) g/dL RDW (11.5-15.5) % Plt Count (150-450) k/uL MPV Neutrophils % % Lymphocytes % % Monocytes % % Eosinophils % % Basophils % % Neutrophils # (1.3-7.7) k/uL Lymphocytes # (1.0-4.8) k/uL Monocytes # (0-1.0) k/uL Eosinophils # (0-0.7) k/uL Basophils # (0-0.2) k/uL Sodium (137-145) mmol/L Potassium (3.5-5.1) mmol/L Chloride (98-107) mmol/L Carbon Dioxide (22-30) mmol/L Anion Gap mmol/L BUN (7-17) mg/dL Creatinine (0.52-1.04) mg/dL Est GFR (CKD-EPI)AfAm (>60 ml/min/1.73 sqM) Est GFR (CKD-EPI)NonAf (>60 ml/min/1.73 sqM) Glucose (74-99) mg/dL Plasma Lactic Acid Mazin 1.5 (0.7-2.0) mmol/L Calcium (8.4-10.2) mg/dL Total Bilirubin (0.2-1.3) mg/dL AST (14-36) U/L ALT (4-34) U/L Alkaline Phosphatase (38-126) U/L Total Protein (6.3-8.2) g/dL Albumin (3.5-5.0) g/dL Lipase (23-300) U/L Urine Color Urine Appearance (Clear) Urine pH (5.0-8.0) Ur Specific [place] (1.001-1.035) Urine Protein (Negative) Urine Glucose (UA) (Negative) Urine Ketones (Negative) Urine Blood (Negative) Urine Nitrite (Negative) Urine Bilirubin (Negative) Urine Urobilinogen (<2.0) mg/dL Ur Leukocyte Esterase (Negative) Urine RBC (0-5) /hpf Urine WBC (0-5) /hpf Urine WBC Clumps (None) /hpf Ur Squamous Epith Cells (0-4) /hpf Urine Bacteria (None) /hpf Urine Mucus (None) /hpf Disposition Clinical Impression: UTI (urinary tract infection), Hydronephrosis, Ureteral stone, Sepsis Disposition: ADMITTED IP TO THIS [facility] Condition: Serious Is patient prescribed a controlled substance at d/c from ED?: No Time of Disposition: 12:34 Decision to Admit Reason: Admit from EC Decision Date: 03/02/24 Decision Time: 12:34
[2024-03-02] MEDS ORDERED: NALOXONE 0.4 MG/ML 1 ML VIAL IV PRN (12:35)
[2024-03-02] MEDS: cefTRIAXone IN SWFI 1,000 MG/10 ML SYRINGE IVP STA (12:36)
--- NOTE | 2024-03-02 15:01 | P.GSCN ---
History of Present Illness Consult date: 03/02/24 Reason for Consult: Right ureteral stone History of present illness: This is a 48-year-old female that presented to the hospital with right-sided flank pain associated with nausea and fevers. On presentation she was febrile at 101. Underwent a CT abdomen pelvis that showed evidence of an 8 mm right- sided proximal ureteral stones with hydroureteronephrosis. She does have history of recurrent kidney stones in the past. Of note she does have history of ureteral stricture in the past that required a buccal ureteroplasty at [place] in 2018. Indicated postsurgery she has not had any issues with hydronephrosis or flank pain. On evaluation in the ER she continues to have flank pain. She was seen on her in urgent care on Friday and was started on antibiotic for possible UTI. denies any previous history of sepsis secondary of stones, but has required previous ureteroscopy with holmium laser for her kidney stones Review of Systems - Constitutional Denies fever, Denies weight loss - EENT Ears, nose, mouth and throat: Denies dysphagia - Cardiovascular Denies chest pain, Denies shortness of breath - Respiratory Denies cough, Denies 7 - Gastrointestinal Reports abdominal pain, Reports nausea, Reports vomiting - Genitourinary Genitourinary: Reports dysuria, Reports flank pain Past Medical History Past Medical History: Fibromyalgia, Thyroid Disorder Additional Past Medical History / Comment(s): kidney stones, History of Any Multi-Drug Resistant Organisms: None Reported Past Surgical History: Section, Cholecystectomy, Hysterectomy Additional Past Surgical History / Comment(s): right ureter replacement Past Psychological History: No Psychological Hx Reported Smoking Status: Never smoker Past Alcohol Use History: None Reported Past Drug Use History: None Reported Medications and Allergies Home Medications Medication Instructions Recorded Confirmed Type Acetaminophen Tab [Tylenol] 500 mg PO DAILY 04/01/23 03/02/24 History Cholecalciferol [Vitamin D3 (125 125 mcg PO DAILY 04/01/23 03/02/24 History Mcg = 5000 Iu)] Cyclobenzaprine [Flexeril] 10 mg PO TID PRN 04/01/23 03/02/24 History Docusate [Colace] 100 mg PO BID PRN 04/01/23 03/02/24 History Gabapentin 300 mg PO BID 04/01/23 03/02/24 History Levothyroxine Sodium [Synthroid] 75 mcg PO DAILY 04/01/23 03/02/24 History Acetaminophen/Diphenhydramine 1 tab PO HS 03/02/24 03/02/24 History [Tylenol Pm Ex-Strength Caplet] Cyanocobalamin (Vitamin B-12) 1,000 mcg PO DAILY 03/02/24 03/02/24 History [Vitamin B-12] Magnesium 200 mg PO HS 03/02/24 03/02/24 History Multivitamins, Thera [Multivitamin 1 tab PO DAILY 03/02/24 03/02/24 History (formulary)] Nitrofurantoin Monohyd/M-Cryst 100 mg PO Q12HR 03/02/24 03/02/24 History [Macrobid] traMADol HCL 50 mg PO Q6H PRN 03/02/24 03/02/24 History Allergies Allergy/AdvReac Type Severity Reaction Status Date / Time Sulfa (Sulfonamide Allergy Anaphylaxis Verified 03/02/24 10:54 Antibiotics) sulfamethoxazole Allergy Anaphylaxis Verified 03/02/24 10:54 [From Bactrim] trimethoprim [From Bactrim] Allergy Anaphylaxis Verified 03/02/24 10:54 Surgical - Exam Vital Signs Temp Pulse Resp BP Pulse Ox 101.3 F H 116 H 20 155/105 99 03/02/24 08:57 03/02/24 08:57 03/02/24 08:57 03/02/24 08:57 03/02/24 08:57 - General no distress, moderate pain - Eyes normal ocular movement, no pale - ENT normal nares, normal mucosa - Respiratory normal expansion, normal respiratory effort - Abdomen Abdomen: soft, non tender - Psychiatric oriented to time, oriented to person, oriented to place Results - Labs 03/02/24 10:08 03/02/24 10:08 Abnormal Lab Results - Last 24 Hours (Table) 03/02/24 03/02/24 03/02/24 Range/Units 09:08 10:08 10:08 Lymphocytes # 0.6 L (1.0-4.8) k/uL Creatinine 1.15 H (0.52-1.04) mg/dL Glucose 130 H (74-99) mg/dL Urine Appearance Cloudy H (Clear) Urine Protein 1+ H (Negative) Urine Blood Moderate H (Negative) Urine Nitrite Positive H (Negative) Urine Bilirubin 1+ H (Negative) Ur Leukocyte Esterase Large H (Negative) Urine RBC 83 H (0-5) /hpf Urine WBC >182 H (0-5) /hpf Urine WBC Clumps Few H (None) /hpf Urine Bacteria Few H (None) /hpf Urine Mucus Rare H (None) /hpf Diabetes panel 03/02/24 Range/Units 10:08 Sodium 137 (137-145) mmol/L Potassium 4.3 (3.5-5.1) mmol/L Chloride 102 (98-107) mmol/L Carbon Dioxide 27 (22-30) mmol/L BUN 14 (7-17) mg/dL Creatinine 1.15 H (0.52-1.04) mg/dL Glucose 130 H (74-99) mg/dL Calcium 9.7 (8.4-10.2) mg/dL AST 27 (14-36) U/L ALT 32 (4-34) U/L Alkaline Phosphatase 85 (38-126) U/L Total Protein 7.6 (6.3-8.2) g/dL Albumin 4.5 (3.5-5.0) g/dL Calcium panel 03/02/24 Range/Units 10:08 Calcium 9.7 (8.4-10.2) mg/dL Albumin 4.5 (3.5-5.0) g/dL Pituitary panel 03/02/24 Range/Units 10:08 Sodium 137 (137-145) mmol/L Potassium 4.3 (3.5-5.1) mmol/L Chloride 102 (98-107) mmol/L Carbon Dioxide 27 (22-30) mmol/L BUN 14 (7-17) mg/dL Creatinine 1.15 H (0.52-1.04) mg/dL Glucose 130 H (74-99) mg/dL Calcium 9.7 (8.4-10.2) mg/dL Adrenal panel 03/02/24 Range/Units 10:08 Sodium 137 (137-145) mmol/L Potassium 4.3 (3.5-5.1) mmol/L Chloride 102 (98-107) mmol/L Carbon Dioxide 27 (22-30) mmol/L BUN 14 (7-17) mg/dL Creatinine 1.15 H (0.52-1.04) mg/dL Glucose 130 H (74-99) mg/dL Calcium 9.7 (8.4-10.2) mg/dL Total Bilirubin 0.8 (0.2-1.3) mg/dL AST 27 (14-36) U/L ALT 32 (4-34) U/L Alkaline Phosphatase 85 (38-126) U/L Total Protein 7.6 (6.3-8.2) g/dL Albumin 4.5 (3.5-5.0) g/dL - Imaging CT scan - abdomen: image reviewed (8 mm right-sided proximal stone with hydronephrosis) Assessment and Plan Assessment: This is a 48-year-old female that presented with sepsis secondary to an 8 mm right-sided proximal ureteral stone. Complicated ureteral urological history previous history of buccal ureteralplasty secondary to a ureteral stricture. Discussed with her given her sepsis and obstructing stone I do recommend proceeding with stent placement. Risk benefit and rationale of surgery was discussed with her in detail. Discussed with her given her complicated history there is potential I may not be able to place a stent and at that point she will require a nephrostomy tube. Discussed with her unfortunately interventional radiology is not available in this hospital and she would require a transfer in order to have a nephrostomy tube placed. Discussed also the stent will not address her stone and she will require an outpatient ureteroscopy with holmium laser to address her stone once her sepsis resolves -Keep n.p.o. -OR for cystoscopy and a right sided stent insertion
[2024-03-02] MEDS ORDERED: traMADol 50 MG TAB PO PRN (15:21)
[2024-03-02] MEDS ORDERED: CYCLOBENZAPRINE 10 MG TAB PO PRN (15:21)
[2024-03-02] MEDS ORDERED: DOCUSATE 100 MG CAP PO PRN (15:21)
[2024-03-02] MEDS: MORPHINE SULFATE 4 MG/ML SYRINGE IV PRN (15:48)
[2024-03-02] MEDS: ACETAMINOPHEN TAB 325 MG TAB PO PRN (17:21)
[2024-03-02] MEDS: IV FLUID CONTINUATION 1,000 ML IV ONE (18:05)
[2024-03-02] MEDS: ONDANSETRON 4 MG/2 ML VIAL IVP PRN (18:27)
[2024-03-02] MEDS: DEXAMETHASONE SOD PHOSPHATE 4 MG/ML 1 ML VIAL IVP ONE (18:27)
[2024-03-02] MEDS ORDERED: LIDOCAINE 1% INJ 10MG/ML (20 ML MDV) ONE (18:31)
[2024-03-02] MEDS ORDERED: fentaNYL (PF) 50 MCG/ML 2 ML AMP ONE (18:31)
[2024-03-02] MEDS ORDERED: MIDAZOLAM 2 MG/2 ML VIAL ONE (18:31)
[2024-03-02] MEDS ORDERED: KETAMINE HCL IN 0.9 % NACL 50 MG/5 ML SYRINGE ONE (18:31)
[2024-03-02] MEDS ORDERED: PROPOFOL 10 MG/ML 20 ML VIAL IV ONE (18:31)
[2024-03-02] MEDS: SODIUM CHLORIDE 0.9% 100 ML with GENTAMICIN 160 MG IV ONE (18:41)
--- NOTE | 2024-03-02 19:10 | P.OP ---
Date of Procedure: 03/02/24 Preoperative Diagnosis: Ureteral Stone Postoperative Diagnosis: Same Procedure(s) Performed: Cystoscopy, right stent insertion Implants: 6 Sinhala by 24 cm stent in the right ureter Anesthesia: MAC Surgeon: Kannan Reyes Estimated Blood Loss (ml): 1 Pathology: none sent Condition: stable Disposition: PACU Indications for Procedure: This is a 48-year-old female that presented to the hospital with sepsis secondary to an 8 mm right-sided proximal stone. She does have a complicated urological history including recurrent stones, previous history of right ureteral stricture repair paired with a buccal ureteroplasty. Presented to the hospital with an 8 mm right-sided ureteral stone patient was febrile and tachycardic. Discussed with her given this finding I do recommend proceeding with cystoscopy and stent insertion. Aware the risk benefit and rationale of doing the procedure in detail. Discussed potential of inability to place the stent given her complicated history and at that point she will require a nephrostomy tube Description of Procedure: Patient brought to the operating room, sedation was induced. She was prepped and draped in sterile fashion and placed in dorsolithotomy position. Cystoscopy fitted through the 22 Sinhala sheath was inserted per urethra, brief cystoscopy was performed which showed no abnormality within the bladder. Attention was then carried to the right ureteral orifice which was intubated with a sensor wire, I was able to advance the sensor wire into the kidney under fluoroscopy. Next ureteral stent was passed over the wire, the proximal curl was visualized on fluoroscopy and the distal curl was visualized using the cystoscope. Of note the stone was radiolucent. A hydronephrotic drip was seen with cloudy urine draining from the stent. This point the patient was awakened from anesthesia and taken to recovery in stable condition
[2024-03-02] MEDS: GABAPENTIN 300 MG CAP PO SCH (20:35)
[2024-03-02] MEDS: MAGNESIUM OXIDE 400 MG TAB PO SCH (20:35)
[2024-03-03] MEDS: LEVOTHYROXINE 75 MCG TAB PO SCH (05:39)
[2024-03-03] MEDS: MULTIVITAMINS, THERA 1 EACH TAB PO SCH (07:47)
--- NOTE | 2024-03-03 08:16 | FL ---
EXAMINATION TYPE: FL guidance operating room Intraoperative/procedural fluoroscopic services were pro vided. Total fluoroscopy time is 12 seconds with a total of 1 submitted images to PACS. Please see th e operative/procedural note for further details. DAP: [id number] mGym2
[2024-03-03 11:19] LABS: Basophils # (A) 0.02 X 10*3/uL (0.00-0.10); Basophils % (A) 0.3 %; Eosinophils # (A) 0 X 10*3/uL (0.04-0.35); Eosinophils % (A) 0 %; HCT 34.8 % (37.2-46.3); HGB 11.8 g/dL (12.0-15.0); MCH 29.4 pg (27.0-32.0); MCHC 33.9 g/dL (32.0-37.0); MCV 86.8 FL (80.0-97.0); Mean Platelet Volume 8.8 FL (9.5-12.2); Monocytes # (A) 0.85 X 10*3/uL (0.20-1.00); Monocytes % (A) 11.3 %; NRBC Per 100 WBC 0 X 10*3/uL (0.00-0.01); Neutrophils # (A) 5.99 X 10*3/uL (1.80-7.70); Platelet Count 157 X 10*3/uL (140-440); RBC 4.01 X 10*6/uL (4.10-5.20); RDW 11.8 % (11.5-14.5); WBC 7.49 X 10*3/uL (4.50-10.00)
[2024-03-03 11:36] LABS: BUN/Creat Ratio 12.38 Ratio (12.00-20.00); Blood Urea Nitrogen 9.9 mg/dL (9.0-27.0); Calcium 8.8 mg/dL (8.7-10.3); Carbon Dioxide 22.5 mmol/L (21.6-31.8); Chloride 106 mmol/L (96-109); Glucose 130 mg/dL (70-110); Potassium 3.9 mmol/L (3.5-5.5); Sodium 140 mmol/L (135-145)
--- NOTE | 2024-03-03 13:22 | P.PN ---
Subjective Progress Note Date: 03/03/24 No acute overnight event, pain is improved. she is afebrile this am Objective - Vital Signs Vital signs: Vital Signs Temp 98.4 F 03/03/24 07:41 Pulse 79 03/03/24 07:41 Resp 16 03/03/24 07:41 BP 130/86 03/03/24 07:41 Pulse Ox 94 L 03/03/24 07:41 FiO2 Intake & Output 03/02/24 03/03/24 03/03/24 18:59 06:59 18:59 Intake Total 604 100 118 Balance 604 100 118 Weight 101.605 kg Intake: IV 604 100 Oral 118 Other: Voiding Method Toilet # Voids 5 - Constitutional General appearance: Present: no acute distress - Gastrointestinal General gastrointestinal: Present: soft. Absent: distended, tenderness - Labs CBC & Chem 7: 03/03/24 06:50 03/03/24 06:50 Labs: Abnormal Lab Results - Last 24 Hours (Table) 03/03/24 03/03/24 Range/Units 06:50 06:50 RBC 4.01 L (4.10-5.20) X 10*6/uL Hgb 11.8 L (12.0-15.0) g/dL Hct 34.8 L (37.2-46.3) % MPV 8.8 L (9.5-12.2) FL Lymphocytes # 0.60 L (0.90-5.00) X 10*3/uL Eosinophils # 0 L (0.04-0.35) X 10*3/uL Glucose 130 H (70-110) mg/dL Assessment and Plan Assessment: S/P right sided stent insertion for septic stone. F/U on urine and blood culture, recommend keeping in hospital until culture is finalized. will arrange for outpatient right sided ureteroscopy and holmium laser
--- NOTE | 2024-03-03 22:48 | HP ---
HISTORY AND PHYSICAL HISTORY OF PRESENT ILLNESS: A 48-year-old white female came in with ureteronephrosis. Dr. Reyes took the patient for ureteroscopy. Due to worsening pain, she has had stent placement. Started on broad-spectrum Rocephin for large abnormal UTI. HOME MEDICINES: 1. Tylenol. 2. Vitamin D3. 3. Flexeril. 4. Colace. 5. Gabapentin. 6. Synthroid 75. 7. Tylenol PM. 8. Vitamin B12. 9. Multivitamin. 10.Nitrofurantoin. 11.Tramadol. ALLERGIES: Sulfa, Bactrim. PAST MEDICAL HISTORY: Fibromyalgia, hypothyroidism, kidney stones. SURGERIES: , cholecystectomy, hysterectomy. PHYSICAL EXAMINATION: VITAL SIGNS: T-max 101.3, pulse 110-116, respiratory rate 18-20, blood pressure is 114- 155/75-105, O2 sat 95% to 99%. CARDIOVASCULAR: S1, S2. LUNGS: Transmitted upper airway sounds. HEMATOLOGY: Negative for Homans. PSYCH: Fair mood and affect. GI: Soft, tenderness to palpation of lower abdomen. EXTREMITIES: No edema. MUSCULOSKELETAL: Tenderness to palpation of paraspinal muscles. LABORATORY DATA: UA is grossly abnormal. Lactic acid 1.5. ASSESSMENT: 1. Urinary tract infection. 2. Hydronephrosis. 3. Ureteral stone. 4. Sepsis. PLAN: Broad-spectrum antibiotics. Wait for urine culture. Continue pain control. Stent placement placed for stone removal. Prognosis guarded. We will wait for further clearance by Urology prior to discharge. Wait for urine culture as the patient wants to go home once she is feeling better. Prognosis guarded. MMODL / IJN: [id number] /
--- NOTE | 2024-03-03 23:06 | P.CONS ---
History of Present Illness - Reason for Consult Consult date: 03/03/24 - History of Present Illness Patient is a 48-year-old female with a past medical history significant for fibromyalgia kidney stone hypothyroidism presenting to the hospital for right flank pain patient symptom has been going on for about 3 days before presentation to the hospital patient was describing the pain to be sharp moderate to severe in intensity by the time presented to hospital patient apparently was initially evaluated urgent care has been diagnosed with a UTI treated with Macrobid without improvement with worsening pain patient presented to hospital, on arrival to the ER patient did have a fever of 101.3 F patient was tachycardic but not hypotensive or hypoxic did have a white count of 7.6 c reatinine was mildly elevated subsequently normalized liver enzymes are normal urine has been positive with a culture is currently pending patient did have abdominal pelvis CT patient was obstructing 0.8 cm proximal right ureteral stone with moderate right hydronephrosis patient was evaluated by urology and the patient is status post cystoscopy and right ureteral stent placement patient is currently on Rocephin 1 g every 12 hours infectious disease was consulted for further management of antibiotic therapy Past Medical History Past Medical History: Fibromyalgia, Thyroid Disorder Additional Past Medical History / Comment(s): kidney stones, History of Any Multi-Drug Resistant Organisms: None Reported Past Surgical History: Section, Cholecystectomy, Hysterectomy Additional Past Surgical History / Comment(s): right ureter replacement Past Anesthesia/Blood Transfusion Reactions: No Reported Reaction Past Psychological History: No Psychological Hx Reported Smoking Status: Never smoker Past Alcohol Use History: None Reported Past Drug Use History: None Reported Medications and Allergies Home Medications Medication Instructions Recorded Confirmed Type Acetaminophen Tab [Tylenol] 500 mg PO DAILY 04/01/23 03/02/24 History Cholecalciferol [Vitamin D3 (125 125 mcg PO DAILY 04/01/23 03/02/24 History Mcg = 5000 Iu)] Cyclobenzaprine [Flexeril] 10 mg PO TID PRN 04/01/23 03/02/24 History Docusate [Colace] 100 mg PO BID PRN 04/01/23 03/02/24 History Gabapentin 300 mg PO BID 04/01/23 03/02/24 History Levothyroxine Sodium [Synthroid] 75 mcg PO DAILY 04/01/23 03/02/24 History Acetaminophen/Diphenhydramine 1 tab PO HS 03/02/24 03/02/24 History [Tylenol Pm Ex-Strength Caplet] Cyanocobalamin (Vitamin B-12) 1,000 mcg PO DAILY 03/02/24 03/02/24 History [Vitamin B-12] Magnesium 200 mg PO HS 03/02/24 03/02/24 History Multivitamins, Thera [Multivitamin 1 tab PO DAILY 03/02/24 03/02/24 History (formulary)] Nitrofurantoin Monohyd/M-Cryst 100 mg PO Q12HR 03/02/24 03/02/24 History [Macrobid] traMADol HCL 50 mg PO Q6H PRN 03/02/24 03/02/24 History Allergies Allergy/AdvReac Type Severity Reaction Status Date / Time Sulfa (Sulfonamide Allergy Anaphylaxis Verified 03/02/24 10:54 Antibiotics) sulfamethoxazole Allergy Anaphylaxis Verified 03/02/24 10:54 [From Bactrim] trimethoprim [From Bactrim] Allergy Anaphylaxis Verified 03/02/24 10:54 Physical Exam Vitals: Vital Signs Temp Pulse Pulse Resp BP BP Pulse Ox 03/03/24 07:41 98.4 F 79 16 130/86 94 L 03/03/24 01:28 99.0 F 77 16 122/84 94 L 03/02/24 22:03 89 17 122/84 94 L 03/02/24 21:03 95 18 126/84 94 L 03/02/24 19:40 106 H 16 145/71 93 L 03/02/24 19:33 94 17 139/87 95 03/02/24 19:25 100 16 138/68 100 03/02/24 19:10 99.4 F 108 H 16 142/70 100 03/02/24 19:03 98.0 F 90 18 99/57 100 03/02/24 18:05 101.8 F H 115 H 15 138/78 97 03/02/24 17:19 102.3 F H 105 H 18 146/93 99 03/02/24 15:45 98.8 F 102 H 18 128/76 97 03/02/24 14:27 99.9 F H 98 18 135/81 99 03/02/24 11:43 98.8 F 110 H 18 114/75 95 Intake and Output 03/02/24 03/03/24 03/03/24 22:59 06:59 14:59 Intake Total 704 118 Balance 704 118 Intake: IV 704 Oral 118 Other: Voiding Method Toilet # Voids 5 Results CBC & Chem 7: 03/03/24 06:50 03/03/24 06:50 Assessment and Plan Plan: 1patient presented to hospital with right flank pain has been diagnosed with a complicated UTI and this patient did have a right ureteral stone and hydronephrosis requiring cystoscopy and right ureteral stent placement with a UTI likely from enteric gram-negative pathogen 2-sulfa allergy 3-we will change Rocephin to 2 g daily while waiting for the culture to finalize We will follow on clinical condition and cultures to further adjust medication if needed Thank you for this consultation we will follow the patient along with you Dictation was produced using [employer] dictation software. please excuse any grammatical, word or spelling errors. Time with Patient: Greater than 30
--- NOTE | 2024-03-04 00:03 | PN ---
PROGRESS NOTE SUBJECTIVE: This is a 48-year-old white female who is status post ureteral stent placement. She has large amounts of kidney stones which are to be removed later. She is on broad- spectrum antibiotics for severe UTI with sepsis. Waiting for urine cultures. Prior to going home, she has to wait for urine cultures per Dr. Lawrence and the urologist. continue with IV antibiotics at this time which is Rocephin, waiting for urine culture. Pain is a 3/10 from stones. Home medications have been reordered. Prognosis guarded. Continue current treatment. OBJECTIVE: PSYCH: Fair mood and affect. NEUROLOGIC: Alert and oriented x3. CARDIOVASCULAR: S1, S2 normal. LUNGS: Clear. GI: Soft, obese. BMI is over 40. PLAN: As mentioned above for ureteral stenosis, status post stent placement with UTI with sepsis. Continue broad-spectrum antibiotics. Home medications have been reordered. PROGNOSIS: Guarded. Diet recommendations were given. MMODL / IJN: [id number] /
--- NOTE | 2024-03-04 10:01 | P.PN ---
Subjective Progress Note Date: 03/04/24 No acute overnight event, denies any flank pain or hematuria this morning. Urine culture showed no growth Objective - Vital Signs Vital signs: Vital Signs Temp 98.4 F 03/04/24 07:35 Pulse 70 03/04/24 07:35 Resp 16 03/04/24 07:35 BP 150/95 03/04/24 07:35 Pulse Ox 97 03/04/24 07:35 FiO2 Intake & Output 03/03/24 03/04/24 03/04/24 18:59 06:59 18:59 Intake Total 236 236 Balance 236 236 Intake: Oral 236 236 Other: Voiding Method Toilet Toilet # Voids 3 - Constitutional General appearance: Present: no acute distress - Gastrointestinal General gastrointestinal: Present: soft. Absent: distended, tenderness - Labs CBC & Chem 7: 03/03/24 06:50 03/03/24 06:50 Labs: Abnormal Lab Results - Last 24 Hours (Table) 03/03/24 03/03/24 Range/Units 06:50 06:50 RBC 4.01 L (4.10-5.20) X 10*6/uL Hgb 11.8 L (12.0-15.0) g/dL Hct 34.8 L (37.2-46.3) % MPV 8.8 L (9.5-12.2) FL Lymphocytes # 0.60 L (0.90-5.00) X 10*3/uL Eosinophils # 0 L (0.04-0.35) X 10*3/uL Glucose 130 H (70-110) mg/dL Microbiology - Last 24 Hours (Table) 03/02/24 10:08 Blood Culture - Preliminary Blood 03/02/24 10:08 Blood Culture - Preliminary Blood 03/02/24 09:08 Urine Culture - Final Urine,Voided Assessment and Plan Assessment: S/P right sided stent insertion for septic stone. Urine culture showed no growth, she is okay for discharge from urology standpoint. Still recommend discharging on antibiotic given obstructive stone in febrile presentation. Antibiotics per infectious disease will arrange for outpatient right sided ureteroscopy and holmium laser
--- NOTE | 2024-03-04 14:08 | P.PN ---
Subjective Progress Note Date: 03/04/24 Principal diagnosis: Reason for follow-up is complicated UTI Patient is a 48-year-old female with a past medical history significant for fibromyalgia kidney stone hypothyroidism presenting to the hospital for right flank pain, patient be diagnosed with a complicated UTI in this patient who did have a 8 mm right ureteral stone s/p cystoscopy and ureteral stent placement. On today's evaluation that is 03/04/2024, patient has been afebrile, patient is breathing comfortably and is currently on room air, patient denies having any significant cough no chest pain shortness of breath, patient denies nausea vomiting or diarrhea and no abdominal pain, feeling better. No new labs has been obtained today cultures so far negative Objective - Vital Signs Vital signs: Vital Signs Temp 98.4 F 03/04/24 07:35 Pulse 70 03/04/24 07:35 Resp 16 03/04/24 07:35 BP 150/95 03/04/24 07:35 Pulse Ox 97 03/04/24 07:35 FiO2 Intake & Output 03/03/24 03/04/24 03/04/24 18:59 06:59 18:59 Intake Total 236 236 Balance 236 236 Intake: Oral 236 236 Other: Voiding Method Toilet Toilet # Voids 3 - Exam GENERAL DESCRIPTION: An elderly male lying in bed in no distress RESPIRATORY SYSTEM: Unlabored breathing , decreased breath sounds at bases HEART: S1 S2 regular rate and rhythm , ABDOMEN: Soft , no tenderness EXTREMITIES: No edema feet - Labs CBC & Chem 7: 03/03/24 06:50 03/03/24 06:50 Labs: Microbiology - Last 24 Hours (Table) 03/02/24 10:08 Blood Culture - Preliminary Blood 03/02/24 10:08 Blood Culture - Preliminary Blood 03/02/24 09:08 Urine Culture - Final Urine,Voided Assessment and Plan (1) UTI (urinary tract infection) Current Visit: Yes Status: Acute Code(s): N39.0 - URINARY TRACT INFECTION, SITE NOT SPECIFIED SNOMED Code(s): 83600772 (2) Ureteral stone Current Visit: Yes Status: Acute Code(s): N20.1 - CALCULUS OF URETER SNOMED Code(s): 99942079 Plan: 1patient presented to hospital with right flank pain has been diagnosed with a complicated UTI and this patient did have a right ureteral stone and hydronephrosis requiring cystoscopy and right ureteral stent placement with a UTI likely from enteric gram-negative pathogen 2-sulfa allergy 3-patient to continue with Rocephin to 2 g daily however the culture remains negative will be able to finish therapy with oral Ceftin Dictation was produced using [employer] dictation software. please excuse any grammatical, word or spelling errors. Time with Patient: Less than 30
[2024-03-04 14:25] VITALS: BP 127/90; PULSE 77; RESP 15; TEMP 98.5
== END 2024-03-04 19:04 | disposition home or self-care (01) | DRG 854 ==
LOC: EC 08:56 → 4SSUR 12:36 → 6NMEDSUR 17:03
PROVIDERS: ADMIT Family Medicine; ATTEND Family Medicine
PROC: 0T768DZ Dilation of Right Ureter with Intraluminal Device, Via Natural or Artificial Opening Endoscopic (ICD-10-PCS; principal; 2024-03-02 11:35)
DX: A41.50 Gram-negative sepsis, unspecified (principal); N13.6 Pyonephrosis; M79.7 Fibromyalgia; E03.9 Hypothyroidism, unspecified; Z88.2 Allergy status to sulfonamides; Z79.899 Other long term (current) drug therapy; Z79.890 Hormone replacement therapy
CPT/HCPCS: 36415; 74178; 80048; 80053; 81001; 83605; 83690; 85025; 87040; 87086; 96361; 96374; 96375; 99291

== ENCOUNTER → 2024-03-22 | Outpatient (CLI) | payer BC ==
[2024-03-22 17:21] LABS: Blood Urea Nitrogen 14.2 mg/dL (9.0-27.0); Calcium 10.3 mg/dL (8.7-10.3); Carbon Dioxide 25.9 mmol/L (21.6-31.8); Chloride 102 mmol/L (96-109); Glucose 112 mg/dL (70-110); Potassium 3.8 mmol/L (3.5-5.5); Sodium 142 mmol/L (135-145)
[2024-03-22 17:24] LABS: Basophils # (A) 0.03 X 10*3/uL (0.00-0.10); Basophils % (A) 0.5 %; Eosinophils # (A) 0.11 X 10*3/uL (0.04-0.35); HCT 42.2 % (37.2-46.3); HGB 13.9 g/dL (12.0-15.0); Lymphocytes # (A) 1.68 X 10*3/uL (0.90-5.00); MCH 29.6 pg (27.0-32.0); MCHC 32.9 g/dL (32.0-37.0); Mean Platelet Volume 9.3 FL (9.5-12.2); Monocytes # (A) 0.57 X 10*3/uL (0.20-1.00); Monocytes % (A) 10.2 %; NRBC Per 100 WBC 0 X 10*3/uL (0.00-0.01); Neutrophils # (A) 3.19 X 10*3/uL (1.80-7.70); Neutrophils % (A) 56.9 %; Platelet Count 244 X 10*3/uL (140-440); RBC 4.69 X 10*6/uL (4.10-5.20); RDW 12.8 % (11.5-14.5)
[2024-03-22 19:32] LABS: Appearance,Urine Turbid (Clear); Bilirubin,Urine Negative (Negative); Blood,Urine Large (Negative); Color,Urine Yellow (Yellow); Ketones,Urine Negative (Negative); Nitrite,Urine Negative (Negative); PH, Urine 5.5; Specific Gravity,Urine 1.021 (1.001-1.030); Urobilinogen,Urine 0.2 E.U./DL
[2024-03-22 21:52] LABS: Bacteria,Urine 1+ (None Seen); Calcium Oxalate Crystals,Urine Present (None Seen); Yeast (UA) Present (None Seen)
== END | disposition home or self-care (01) ==
LOC: LABPAT 08:24
PROVIDERS: ATTEND Urology
DX: Z01.812 Encounter for preprocedural laboratory examination (principal); N20.1 Calculus of ureter
CPT/HCPCS: 80048; 81001; 85025; 87086

== ENCOUNTER → 2024-03-30 | Day surgery (SDC) | payer BC ==
--- NOTE | 2024-03-29 20:50 | P.HPIHPCON ---
History of Present Illness H&P Date: 03/29/24 Chief Complaint: Right ureteral stone This is a 48-year-old female with history of an 8 mm right-sided ureteral stone, status post stent insertion secondary to septic presentation. She presents today for definitive stone management. Of note she does have a history of a buc sommer ureteroplasty. Discussed with her at this point I recommend proceeding with a right-sided ureteroscopy with holmium laser to address her stone, and aware the risk which includes but not limited to bleeding, infection, injury to the ureter. Discussed also potential of not being able to perform the procedure if there is narrowing secondary to her previous ureteral surgery. She understood all the risk and agreed to proceed Consent for Procedure: I have explained the operation/procedure to the patient, including the risks, benefits, side effects, alternative therapies (including not receiving the proposed treatment or service), the likelihood of the patient achieving his/her goals, and potential recuperation problems for the procedure/sedation/analgesia, as well as any blood products, if indicated. I also explained to the patient the risks, benefits and side effects of the alternatives, as well as the risks related to not receiving the proposed procedure, care, treatment, or services. Past Medical History Past Medical History: Fibromyalgia, Thyroid Disorder Additional Past Medical History / Comment(s): kidney stones - left 2022 - passed, current obstructing right kidney stone, chronic right hydronephrosis, frequent UTI's History of Any Multi-Drug Resistant Organisms: None Reported Past Surgical History: Section, Cholecystectomy, Hysterectomy Additional Past Surgical History / Comment(s): right ureter stent placement February 2024; nasal septoplasty 2017; c-sections x 2 Past Anesthesia/Blood Transfusion Reactions: No Reported Reaction Smoking Status: Never smoker Medications and Allergies Home Medications Medication Instructions Recorded Confirmed Type Acetaminophen Tab [Tylenol] 500 mg PO DAILY 04/01/23 03/25/24 History Cholecalciferol [Vitamin D3 (125 125 mcg PO DAILY 04/01/23 03/25/24 History Mcg = 5000 Iu)] Cyclobenzaprine [Flexeril] 10 mg PO TID PRN 04/01/23 03/25/24 History Docusate [Colace] 100 mg PO BID PRN 04/01/23 03/25/24 History Gabapentin 300 mg PO BID 04/01/23 03/25/24 History Levothyroxine Sodium [Synthroid] 75 mcg PO DAILY 04/01/23 03/25/24 History Magnesium 200 mg PO HS 03/02/24 03/25/24 History Ciprofloxacin HCl [Cipro] 500 mg PO BID 03/25/24 03/25/24 History Vitamin B Complex 1 each PO DAILY 03/25/24 03/25/24 History Allergies Allergy/AdvReac Type Severity Reaction Status Date / Time Sulfa (Sulfonamide Allergy Anaphylaxis Verified 03/25/24 09:09 Antibiotics) sulfamethoxazole Allergy Anaphylaxis Verified 03/25/24 09:09 [From Bactrim] trimethoprim [From Bactrim] Allergy Anaphylaxis Verified 03/25/24 09:09 Surgical - Exam - General no distress, moderate pain - Eyes normal ocular movement, no pale - ENT normal nares, normal mucosa - Abdomen Abdomen: soft, no non tender Assessment and Plan Assessment: OR for right-sided ureteroscopy, holmium laser lithotripsy, stone basketing, stent removal versus exchange
[~2024-03-30] MED LIST: LACTATED RINGERS 1,000 ML IV SCH; LIDOCAINE 1% (10MG/ML) FOR IV START INTRADERMA PRN; LIDOCAINE 1% INJ 10MG/ML (20 ML MDV) ONE; MIDAZOLAM 2 MG/2 ML VIAL IV PRN; MIDAZOLAM 2 MG/2 ML VIAL ONE; PROPOFOL 10 MG/ML 20 ML VIAL IV ONE; fentaNYL (PF) 50 MCG/ML 2 ML AMP ONE
[2024-03-30] MEDS: LACTATED RINGERS 1,000 ML IV ONE (10:30)
[2024-03-30] MEDS: ONDANSETRON 4 MG/2 ML VIAL IVP ONE (10:35)
[2024-03-30] MEDS: DEXAMETHASONE SOD PHOSPHATE 4 MG/ML 1 ML VIAL IV ONE (10:35)
--- NOTE | 2024-03-30 11:09 | XR ---
EXAMINATION TYPE: XR KUB DATE OF EXAM: 03/30/2024 10:16 AM CLINICAL INDICATION:Female, 48 years old with history of N20.0 URETERAL STONE; COMPARISON: 04/03/2020 TECHNIQUE: One radiographic view of the abdomen was obtained. FINDINGS: Right ureteral stent with superior and inferior pigtail catheter catheter is in appropriate position. Right inferior 4 mm renal calculus. No left renal calculi visualized. The bowel gas patter n is nonspecific without dilated loops of small or large bowel. There is no evidence for organomegaly or pneumoperitoneum. The osseous structures are intact. No abnormal calcifications are present. Fe sommer material and gas are demonstrated throughout the colon and rectum. IMPRESSION: 1. Right ureteral stent with proximal and ureter pigtail catheters in appropriate position. Right re nal calculus. 2. Nonspecific bowel gas pattern without radiographic evidence for acute process.
[2024-03-30 11:15] VITALS: TEMP 97
--- NOTE | 2024-03-30 12:40 | P.OP ---
Date of Procedure: 03/30/24 Preoperative Diagnosis: Right ureteral stone Postoperative Diagnosis: Same Procedure(s) Performed: Cystoscopy, right ureteroscopy, holmium laser lithotripsy, stone basketing and stent exchange Implants: 6 Danish by 24 cm stent in the right ureter Anesthesia: LIT Surgeon: Kannan Reyes Estimated Blood Loss (ml): 5 Pathology: other (left ureteral stone) Condition: stable Disposition: PACU Indications for Procedure: This is a 48-year-old female with history of an 8 mm right-sided ureteral stone, status post stent insertion secondary to septic presentation. She presents today for definitive stone management. Of note she does have a history of a b uccal ureteroplasty. Discussed with her at this point I recommend proceeding with a right-sided ureteroscopy with holmium laser to address her stone, and aware the risk which includes but not limited to bleeding, infection, injury to the ureter. Discussed also potential of not being able to perform the procedure if there is narrowing secondary to her previous ureteral surgery. She understood all the risk and agreed to proceed Operative Findings: Right-sided proximal ureteral stone, additional stone in the lower pole Description of Procedure: Patient brought to the operating room, general anesthesia was induced. She was prepped and draped in sterile fashion placed in a dorsolithotomy position. Cystoscopy fitted through the 21 Danish sheath was inserted per urethra, cystoscopy was performed which showed no abnormality within the bladder. Attention was then carried to the right ureteral orifice, the stent was grasped and removed intact. Next a semirigid ureteroscope was inserted per urethra and advanced up the right ureteral orifice, a stone was encountered in the proximal ureter. Using the holmium laser the stone was fragmented, stone fragments were removed using a stone basket. Of note there was edema at the site of the stone, but on laser lithotripsy there was no injury to the ureter. At this time the sensor wire was advanced through the ureteroscope and the ureteroscope was withdrawn with the wire in place. Next an 1113 Danish access sheath was passed over the wire, the flexible ureteroscope was inserted through the access sheath, renoscopy was performed showed a large stone in the lower pole, the stone was repositioned using the stone basket into the upper pole. Using the holmium laser the stone was fragmented, stone fragments were removed using the stone basket. Repeat renoscopy showed no injury to the kidney or any sizable fragments. Pullback ureteroscopy was performed showed no injury to the ureter or any ureteral stones, of note there was edema at the site of the stone, thus decision was made to proceed with stent exchange. This time as the ureteroscope was withdrawn a sensor wire was advanced through. Next a ureteral stent was passed over the wire, the proximal curl was visualized on fluoroscopy and the distal curl was visualized using the cystoscope. The bladder was emptied at the end of the case. Patient tolerated procedure was taken to recovery in stable condition
[2024-03-30] MEDS: HYDROmorphone 0.5 MG/0.5 ML SYRINGE IVP PRN (12:49)
[2024-03-30] MEDS: KETOROLAC 15 MG/ML 1 ML VIAL IVP ONE (13:09)
--- NOTE | 2024-03-30 13:15 | FL ---
EXAMINATION TYPE: FL guidance operating room Intraoperative/procedural fluoroscopic services were pro vided. Total fluoroscopy time is 8 point seconds with a total of 4 submitted images to PACS. Please s ee the operative/procedural note for further details. DAP: 1.6691 Gycm2
[2024-03-30 13:59] VITALS: BP 139/90; PULSE 55; RESP 12
== END ==
LOC: OR 09:50
PROVIDERS: ATTEND Urology
DX: N20.1 Calculus of ureter (principal); M79.7 Fibromyalgia; E07.9 Disorder of thyroid, unspecified; Z90.49 Acquired absence of other specified parts of digestive tract; Z88.2 Allergy status to sulfonamides; Z88.1 Allergy status to other antibiotic agents; Z90.710 Acquired absence of both cervix and uterus; Z79.890 Hormone replacement therapy; Z87.440 Personal history of urinary (tract) infections; Z79.899 Other long term (current) drug therapy
CPT/HCPCS: 52356; 82365; 74018; C2625; C1769 ×2; J2250; J1100; J0690; J2405; J2001; J3010; J1885; J2704; J1170